=== PATIENT | female | born 1980 ===

== ENCOUNTER 2016-07-28 03:59 | Emergency (ER) | payer MEDICAID, OTHER ==
[~2016-07-28] VITALS: Ht 154.9 cm; Wt 97.3 kg
[~2016-07-28 03:59] MED LIST: ALBU8.5H2 INHALATION; AZIT250T4 PO; BENZ-12 PO; GUAI10LI PO; HYDR-4003 PO; IBUP-1827 PO; NITR100 PO; ONDA-54 PO; ONDA8TAB10 PO; OXYC1TAB24 PO; PRE10 PO; PRE20 PO
[2016-07-28 04:02] VITALS: BP 134/95; PULSE 89; RESP 16; O2SAT 98
--- NOTE | 2016-07-28 05:07 | ED.REPORT ---
HPI-General Illness Date of Service Jul 28, 2016 ED Provider: Dr. aMn Pt is a 36 y/o female w/ a hx of asthma presenting to the ED due to flu-like symptoms onset today. She reports associated fever, fatigue, nasal congestion, myalgia, mild SOB. She denies N/V/D. Nursing Notes Stated Complaint: COUGH/ FLU SYMPTOMS Chief Complaint: FLU/Cold Symptoms Nursing Notes Reviewed: Yes Allergies: Coded Allergies: propoxyphene (Verified Allergy, Severe, Breathing problems and tacycardia , 07/28/16) onion (Verified Allergy, Intermediate, Rash and swelling, 07/28/16) Sulfa (Sulfonamide Antibiotics) (Verified Allergy, Unknown, 07/28/16) Uncoded Allergies: ALL NAUSEA MEDS EXCEPT ZOFRAN (Allergy, Intermediate, ITCH, HIVES, 11/02/12) Scheduled Albuterol HFA (Proair HFA) 8.5 Gm Hfa.aer.ad 2 PUFFS INHALATION Q4H Albuterol HFA (Proair HFA) 8.5 Gm Hfa.aer.ad 2 PUFFS INHALATION Q4H Azithromycin (Zithromax (Z-Anthony)) 250 Mg Tablet 250 MG PO DAILY Nitrofurantoin Monohyd/M-Cryst (MacroBid) 100 Mg Capsule 100 MG PO BID Prednisone (PredniSONE) 20 Mg Tablet 60 MG PO DAILY Prednisone (PredniSONE) 10 Mg Tablet 10 MG PO DAILY on 03/12,18 take 20mg 03/14, 20 take 10mg 03/16, 22 take 5mg you have been given extra to use with your next asthma exacerbation Prednisone (PredniSONE) 20 Mg Tablet 60 MG PO DAILY Scheduled PRN Albuterol HFA (Proair HFA) 8.5 Gm Hfa.aer.ad 2-4 PUFFS INHALATION Q4H PRN PRN For Shortness of Breath Albuterol HFA (Proair HFA) 8.5 Gm Hfa.aer.ad 2 PUFFS INHALATION Q4H PRN PRN For Shortness of Breath Benzonatate (Tessalon Perle) 100 Mg Capsule 200 MG PO TID PRN PRN For Cough Guaifenesin/Codeine Phosphate (Guaifenesin-Codeine Syrup) 10 Ml Liquid 10 ML PO QID PRN PRN For Cough Hydrocodone-Acetaminophen 5-325 mg (Hydrocodone-Acetaminophen 5-325 mg) 1 Each Tablet 1-2 TABLET PO TID PRN PRN For Pain Ibuprofen (Ibuprofen) 600 Mg Tablet 600 MG PO QID PRN PRN For Pain Ondansetron (Ondansetron) 8 Mg Tablet 8 MG PO TID PRN PRN For Nausea Ondansetron ODT (Ondansetron ODT) 8 Mg Tab.rapdis 8 MG PO QID PRN PRN korey oxyCODONE-Acetaminophen 5-325 mg (oxyCODONE-Acetaminophen 5-325 mg) 1 Each Tablet 0.5-1 TAB PO Q6H PRN PRN For Pain General Time Seen by MD: 05:06 Chief Complaint Not feeling well Hx Obtained From: Patient Arrived By: Walk-in Sudden in Onset?: No Onset Occurred: 9 - 12 hours ago Symptom Duration: Since onset Quality: Aching (diffuse) Severity: Current: Mild Severity: Maximum: Mild Past Medical History Past Medical History asthma kidney stones anxiety uterine cancer chronic pain Past Surgical History Hysterectomy 2008 x3 Family History Noncontributory Smoking History Never Smoker Social History Alcohol Use: Denies alcohol use Drug Use: THC Other Social History: Good social support, Frequent ED visitor, , Lives with children, Local resident Ambulatory Status Independent Review of Systems Full Review of Systems Constitutional: Reports: Chills, Fever Respiratory: Reports: Non-productive cough, Shortness of breath GI: Denies: Diarrhea, Nausea, Vomiting Complete sys rev & neg: except as marked. Physical Exam Vital Signs Vital Signs Date Time Temp Pulse Resp B/P Pulse Ox O2 Delivery O2 Flow Rate FiO2 07/28/16 05:57 36.9 84 16 148/82 98 Room Air 07/28/16 05:26 79 18 98 Room Air 07/28/16 04:02 36.4 89 16 134/95 98 Room Air Initial VS: Reviewed, Vital signs normal Head / Eyes: Atraumatic, Normocephalic, PERRL ENT: Mucous membranes moist, Conjunctiva normal, No scleral icterus Neck: Supple, Full range of motion Cardiovascular: Regular rate & rhythm, Heart sounds normal, Intact distal pulses Abdomen / GI: Soft Skin: Warm, Dry, No cyanosis Neurologic: Alert, Oriented, Nonfocal Psychiatric: Mood/affect normal, Behavior normal, Normal thought content General/Constitutional: Awake, Alert, No acute distress, Cooperative, Not toxic appearing Respiratory / Chest: Atraumatic, No respiratory distress, No retractions, No stridor, No chest tenderness, No chest wall deformity, No crepitus Mild wheezing diffusely Re-Eval/Medical Decision Med Decision/Clinical Course 36-year-old with background asthma presents with cough and upper history symptoms. She is negative for flu by test. Home with brief prednisone course, albuterol, and follow up with PCP. No indication for antibiotics. Time of Eval: 05:12 Re-Evaluation/Progress Note: Pt rechecked. Informed pt of plan for treatment. Pt understands and agrees with plan for treatment. F/U and RTER warnings given. All questions addressed. Counseled Regarding: Diagnosis, Lab results, Need for follow-up, When/why to return to ED Discharge & Departure Primary Impression: Asthma exacerbation Additional Impression: Upper respiratory infection URI type: unspecified URI Qualified Code: J06.9 - Acute upper respiratory infection, unspecified Disposition: Home Discharge Condition All VS Reviewed: Yes Condition: Stable Additional Instructions: Ibuprofen as needed for pain. Albuterol two puffs with spacer every four hours as needed for cough and wheeze. Prednisone three tabs daily for five days. Follow-up with your doctor in the office. Referrals: Mackenzie Sheriff (PCP) Scribe Attestation Portions of this note were transcribed by Mundo Givens. I, Dr. Man personally performed the history, physical exam and medical decision-making; I reviewed and confirmed the accuracy of the information in the transcribed note. Signed by Lauren Brannon, 07/28/16 13 copies to: Mackenzie Sheriff Christopher W MD Jul 28, 2016 05:07 MUNDO GIVENS Jul 28, 2016 05:18
[2016-07-28] MEDS ORDERED: Albuterol-Ipratropium 3 mL Inhalation Solution NEB ONE (05:20)
[2016-07-28] MEDS ORDERED: Dexamethasone 20 mg/2 mL Oral Solution PO ONE (05:20)
[2016-07-28 05:26] VITALS: PULSE 79; RESP 18; O2SAT 98
[2016-07-28] MEDS ORDERED: PRE20 PO (05:30)
[2016-07-28] MEDS ORDERED: ALBU8.5H2 INHALATION (05:30)
[2016-07-28 05:57] VITALS: BP 148/82; PULSE 84; RESP 16; O2SAT 98
== END 2016-07-28 05:31 | disposition home or self-care (01) ==
LOC: SED 03:59
DX: J45.901 Unspecified asthma with (acute) exacerbation (principal); J06.9 Acute upper respiratory infection, unspecified; M79.1 Myalgia; R50.9 Fever, unspecified; Z88.2 Allergy status to sulfonamides; Z88.8 Allergy status to other drugs, medicaments and biological substances; Z91.02 Food additives allergy status
CPT/HCPCS: 87804; 94664; 99284; J7620

== ENCOUNTER 2016-08-03 13:31 | Emergency (ER) | payer MEDICAID, OTHER ==
[~2016-08-03] VITALS: Ht 154.9 cm; Wt 96.8 kg
[2016-08-03 14:09] VITALS: BP 152/95; PULSE 96; RESP 22; O2SAT 99
--- NOTE | 2016-08-03 14:40 | ED.REPORT ---
HPI-URI / Cough / Cold Date of Service Aug 03, 2016 ED Provider: Doc,Ed MD History of Present Illness: 36yo female with persistent cough/malaise for severaldays. Seen in this ED on 07/28/16, treated fopr asthma exacerbation. Sanjeev;ateral rib pain from coughing. Good PO intake. ANNE reports shows this is 7th ED visit in 2 months. Nursing Notes Stated Complaint: RIB PAIN/SICK Chief Complaint: FLU/Cold Symptoms Nursing Notes Reviewed: Yes Allergies: Coded Allergies: propoxyphene (Verified Allergy, Severe, Breathing problems and tacycardia , 07/28/16) onion (Verified Allergy, Intermediate, Rash and swelling, 07/28/16) Sulfa (Sulfonamide Antibiotics) (Verified Allergy, Unknown, 07/28/16) Uncoded Allergies: ALL NAUSEA MEDS EXCEPT ZOFRAN (Allergy, Intermediate, ITCH, HIVES, 11/02/12) Scheduled Albuterol HFA (Proair HFA) 8.5 Gm Hfa.aer.ad 2 PUFFS INHALATION Q4H Albuterol HFA (Proair HFA) 8.5 Gm Hfa.aer.ad 2 PUFFS INHALATION Q4H Azithromycin (Zithromax (Z-Anthony)) 250 Mg Tablet 250 MG PO DAILY Nitrofurantoin Monohyd/M-Cryst (MacroBid) 100 Mg Capsule 100 MG PO BID Prednisone (PredniSONE) 20 Mg Tablet 60 MG PO DAILY Prednisone (PredniSONE) 10 Mg Tablet 10 MG PO DAILY on 03/12, take 20mg 03/14, 20 take 10mg 03/16, 22 take 5mg you have been given extra to use with your next asthma exacerbation Prednisone (PredniSONE) 20 Mg Tablet 60 MG PO DAILY Scheduled PRN Albuterol HFA (Proair HFA) 8.5 Gm Hfa.aer.ad 2-4 PUFFS INHALATION Q4H PRN PRN For Shortness of Breath Albuterol HFA (Proair HFA) 8.5 Gm Hfa.aer.ad 2 PUFFS INHALATION Q4H PRN PRN For Shortness of Breath Benzonatate (Tessalon Perle) 100 Mg Capsule 200 MG PO TID PRN PRN For Cough Benzonatate (Tessalon Perle) 100 Mg Capsule 100 MG PO TID PRN PRN For Cough Guaifenesin/Codeine Phosphate (Guaifenesin-Codeine Syrup) 10 Ml Liquid 10 ML PO QID PRN PRN For Cough Hydrocodone-Acetaminophen 5-325 mg (Hydrocodone-Acetaminophen 5-325 mg) 1 Each Tablet 1-2 TABLET PO TID PRN PRN For Pain Ibuprofen (Ibuprofen) 600 Mg Tablet 600 MG PO QID PRN PRN For Pain Ondansetron (Ondansetron) 8 Mg Tablet 8 MG PO TID PRN PRN For Nausea Ondansetron ODT (Ondansetron ODT) 8 Mg Tab.rapdis 8 MG PO QID PRN PRN korey oxyCODONE-Acetaminophen 5-325 mg (oxyCODONE-Acetaminophen 5-325 mg) 1 Each Tablet 0.5-1 TAB PO Q6H PRN PRN For Pain General Time Seen by MD: 14:34 Chief Complaint Cough, non-productive Hx Obtained From: Patient Arrived By: Walk-in Onset Occurred: 1 week ago Symptom Duration: Waxes and wanes Location: : Chest Radiation: Does not radiate Severity: Current: Mild Severity: Maximum: Mild Recent Healthcare: Recent doctor visit, Previous diagnosis Similar Sx Previous: Yes Past Medical History Past Medical History asthma kidney stones anxiety uterine cancer chronic pain Past Surgical History Hysterectomy 2008 x3 Family History Noncontributory Smoking History Never Smoker Social History Alcohol Use: Denies alcohol use Drug Use: THC Other Social History: Good social support, Frequent ED visitor, , Lives with children, Local resident Ambulatory Status Independent Review of Systems Constitutional: Reports: Fever, Denies: Chills Ears / Nose / Throat: Denies: Ear ringing bilateral Respiratory: Reports: Non-productive cough, Pleuritic pain, Wheezing GI: Denies: Abdominal pain Complete sys rev & neg: except as marked. Physical Exam Initial Vital Signs Vital Signs (First) Date Time Temp Pulse Resp B/P Pulse Ox O2 Delivery O2 Flow Rate FiO2 08/03/16 14:09 36.4 96 22 152/95 99 Room Air Initial VS: Reviewed General/Constitutional: Awake, Alert, No acute distress, Well hydrated, Not toxic appearing ENT: Airway patent, Mucous membranes moist, Pharynx NL Respiratory / Chest: Atraumatic, Breath sounds NL, Breath sounds = bilat, No respiratory distress Neck: Supple, Full range of motion, No adenopathy Cardiovascular: Heart rate NL, Regular rhythm, Heart sounds NL Abdomen: Soft, Non-tender Interpretation & Diagnostics Interpretation & Diagnostics: Rapid Flu test = negative X-Ray Chest Interpretation Chest Xray Interpretation: PROCEDURE: X-RAY CHEST, TWO VIEWS ([id number]) INDICATIONS: cough TECHNIQUE: 2 views of the chest were acquired. COMPARISON: None. FINDINGS: Surgical changes and devices: None. Lungs and pleura: No pleural effusions or pneumothorax. The old calcified granuloma at the right lung base. Lungs are clear. Mediastinum: Mediastinal contours are normal. Heart size is normal. Bones and chest wall: No suspicious bony abnormalities. Soft tissues appear unremarkable. IMPRESSION: No acute or active disease seen in the two-view chest. Dictated by: Timothy Casillas M.D. on 08/03/2016 at 15:22 Approved by: Timothy Casillas M.D. on 08/03/2016 at 15:22 Re-Eval/Medical Decision Med Decision/Clinical Course Med Decision/Clinical Course: straightforward bronchitis, no worrisome features. Pt. shopuld do well with home symptomatic treatment. S/s for which to return to ED discussed. Pt. acknowledged understanding of treatment plan. Counseled Regarding: Diagnosis, Lab results, Need for follow-up, When/why to return to ED Discharge & Departure Impression: Primary Impression: Bronchitis Additional Impression: Asthma Asthma severity: unspecified severity Asthma complication type: uncomplicated Qualified Code: J45.909 - Unspecified asthma, uncomplicated Disposition: Home Patient Instructions: Acute Bronchitis (ED) Additional Instructions: continue asthma meds as previously prescribed. Take Cough tablets as prescribed today. Follow up with your doctor if not improving, return to ER if worse. Referrals: Mackenzie Sheriff (PCP) 2-3 days if not improving as expected EDSupervising Provider for APC: Grant Acevedo MD, Christopher R PAC Aug 03, 2016 14:40
--- NOTE | 2016-08-03 15:24 | DRSVH ---
PROCEDURE: X-RAY CHEST, TWO VIEWS ([id number]) INDICATIONS: cough TECHNIQUE: 2 views of the chest were acquired. COMPARISON: None. FINDINGS: Surgical changes and devices: None. Lungs and pleura: No pleural effusions or pneumothorax. The old calcified granuloma at the right walter g base. Lungs are clear. Mediastinum: Mediastinal contours are normal. Heart size is normal. Bones and chest wall: No suspicious bony abnormalities. Soft tissues appear unremarkable. IMPRESSION: No acute or active disease seen in the two-view chest. Dictated by: Timothy Casillas M.D. on 08/03/2016 at 15:22 Approved by: Timothy Casillas M.D. on 08/03/2016 at 15:22
[2016-08-03] MEDS ORDERED: BENZ-12 PO (16:27)
[2016-08-03 16:29] VITALS: BP 152/95; PULSE 96; RESP 22; O2SAT 99
== END 2016-08-03 16:30 | disposition home or self-care (01) ==
LOC: SED 13:31
DX: J45.909 Unspecified asthma, uncomplicated (principal); C55 Malignant neoplasm of uterus, part unspecified

== ENCOUNTER 2016-08-10 23:25 | Emergency (ER) | payer MEDICAID, OTHER ==
[~2016-08-10] VITALS: Ht 154.9 cm; Wt 96.4 kg
[2016-08-10 23:34] VITALS: BP 112/76; PULSE 119; RESP 20; O2SAT 97
--- NOTE | 2016-08-10 23:44 | ED.REPORT ---
HPI-General Illness Date of Service Aug 10, 2016 ED Provider: Lencho Phelan DO A 36 year old female with a history of asthma, COPD, anxiety, and multiple recent ED visits presents to the ED complaining of abdominal pain. This is accompanied by cough, vomiting, and diarrhea. The pt was seen several days ago for similar symptoms and was diagnosed with influenza A. Nursing Notes Stated Complaint: POSSIBLE FLU Chief Complaint: FLU/Cold Symptoms Nursing Notes Reviewed: Yes Allergies: Coded Allergies: propoxyphene (Verified Allergy, Severe, Breathing problems and tacycardia , 08/10/16) onion (Verified Allergy, Intermediate, Rash and swelling, 08/10/16) Sulfa (Sulfonamide Antibiotics) (Verified Allergy, Unknown, 08/10/16) Uncoded Allergies: ALL NAUSEA MEDS EXCEPT ZOFRAN (Allergy, Intermediate, ITCH, HIVES, 11/02/12) Scheduled Albuterol HFA (Proair HFA) 8.5 Gm Hfa.aer.ad 2 PUFFS INHALATION Q4H Albuterol HFA (Proair HFA) 8.5 Gm Hfa.aer.ad 2 PUFFS INHALATION Q4H Azithromycin (Zithromax (Z-Anthony)) 250 Mg Tablet 250 MG PO DAILY Nitrofurantoin Monohyd/M-Cryst (MacroBid) 100 Mg Capsule 100 MG PO BID Prednisone (PredniSONE) 20 Mg Tablet 60 MG PO DAILY Prednisone (PredniSONE) 10 Mg Tablet 10 MG PO DAILY on 03/12, take 20mg 03/14, 20 take 10mg 03/16, 22 take 5mg you have been given extra to use with your next asthma exacerbation Prednisone (PredniSONE) 20 Mg Tablet 60 MG PO DAILY Scheduled PRN Albuterol HFA (Proair HFA) 8.5 Gm Hfa.aer.ad 2-4 PUFFS INHALATION Q4H PRN PRN For Shortness of Breath Albuterol HFA (Proair HFA) 8.5 Gm Hfa.aer.ad 2 PUFFS INHALATION Q4H PRN PRN For Shortness of Breath Benzonatate (Tessalon Perle) 100 Mg Capsule 200 MG PO TID PRN PRN For Cough Benzonatate (Tessalon Perle) 100 Mg Capsule 100 MG PO TID PRN PRN For Cough Guaifenesin/Codeine Phosphate (Guaifenesin-Codeine Syrup) 10 Ml Liquid 10 ML PO QID PRN PRN For Cough Hydrocodone-Acetaminophen 5-325 mg (Hydrocodone-Acetaminophen 5-325 mg) 1 Each Tablet 1-2 TABLET PO TID PRN PRN For Pain Ibuprofen (Ibuprofen) 600 Mg Tablet 600 MG PO QID PRN PRN For Pain Ondansetron (Ondansetron) 8 Mg Tablet 8 MG PO TID PRN PRN For Nausea Ondansetron ODT (Ondansetron ODT) 8 Mg Tab.rapdis 8 MG PO QID PRN PRN korey Ondansetron ODT (Ondansetron ODT) 8 Mg Tab.rapdis 8 MG PO QID PRN PRN For Nausea oxyCODONE-Acetaminophen 5-325 mg (oxyCODONE-Acetaminophen 5-325 mg) 1 Each Tablet 0.5-1 TAB PO Q6H PRN PRN For Pain General Time Seen by MD: 23:44 Chief Complaint Abdominal pain Hx Obtained From: Patient Arrived By: Walk-in Sudden in Onset?: No Recent Healthcare: Recent doctor visit, Recent hospitalization Similar Sx Previous: Yes Past Medical History Past Medical History asthma kidney stones anxiety uterine cancer chronic pain Past Surgical History Hysterectomy 2008 x3 Family History Noncontributory Smoking History Never Smoker Social History Alcohol Use: Denies alcohol use Drug Use: THC Other Social History: Good social support, Frequent ED visitor, , Lives with children, Local resident Ambulatory Status Independent Review of Systems Full Review of Systems Respiratory: Reports: Non-productive cough GI: Reports: Abdominal pain, Diarrhea, Nausea, Vomiting Musculoskeletal: Denies: Back pain, Neck pain Skin: Denies Rash Complete sys rev & neg: except as marked. Physical Exam Vital Signs Vital Signs Date Time Temp Pulse Resp B/P Pulse Ox O2 Delivery O2 Flow Rate FiO2 08/11/16 04:28 37.2 89 20 138/86 98 Room Air 08/11/16 03:11 101 20 147/89 99 Room Air 08/10/16 23:34 36.3 119 20 112/76 97 Room Air Initial VS: Reviewed General/Constitutional: Awake, Alert Head / Eyes: Atraumatic, Normocephalic, PERRL, EOMI ENT: Atraumatic, Airway patent, Mucous membranes moist Neck: Atraumatic, Supple, Full range of motion Respiratory / Chest: Atraumatic, Breath sounds = bilat, No respiratory distress wheeze in bilateral bases Cardiovascular: Heart rate NL, Regular rhythm, Heart sounds NL Abdomen: Atraumatic, Soft, Non-tender Back: Atraumatic, Full range of motion Upper Extremities Upper Extremity / MS: Atraumatic, Full range of motion Lower Extremity / Pelvis / MS: Atraumatic, Full range of motion Skin: Atraumatic, Color NL, No rash, Warm, Dry Neurologic: Oriented X3, Speech NL, No motor deficits, No sensory deficits Psychiatric: Affect NL, Mood NL Interpretation & Diagnostics Lab Results Interpretation Result Diagram: 08/11/16 0027 08/11/16 0027 Test 08/11/16 00:27 White Blood Count 11.2th/mm3 (3.8-10.1) Red Blood Count 4.44mil/mm3 (3.90-5.20) Hemoglobin 12.4g/dL (12.0-15.6) Hematocrit 38.0% (35.0-46.0) Mean Corpuscular Volume 85.6fL (81-100) Mean Corpuscular Hemoglobin 27.9pg (27.0-35.0) Mean Corpuscular Hemoglobin Concent 32.6% (32.0-37.0) Red Cell Distribution Width 15.3% (12.3-15.4) Platelet Count 418bil/L (150-400) Neutrophils (%) (Auto) 54.4% (40-74) Lymphocytes (%) (Auto) 29.3% (14-46) Monocytes (%) (Auto) 9.5% (4-12) Eosinophils (%) (Auto) 6.3% (0-5) Basophils (%) (Auto) 0.3% (0-3) Sodium Level 142mEq/L (134-144) Potassium Level 4.2mEq/L (3.5-5.2) Chloride Level 104mEq/L (97-108) Carbon Dioxide Level 25mmol/L (18-29) Blood Urea Nitrogen 10mg/dL (6-20) Creatinine 0.62mg/dL (0.57-1.00) Estimat Glomerular Filtration Rate 154mL/min (>59) Glucose Level 106mg/dL (60-99) Lactic Acid Level 0.9mmol/L (0.4-2.0) Calcium Level 8.4mg/dL (8.5-10.1) Total Bilirubin 0.3mg/dL (0.0-1.2) Aspartate Amino Transf (AST/SGOT) 17U/L (0-50) Alanine Aminotransferase (ALT/SGPT) 14U/L (0-32) Alkaline Phosphatase 104U/L (25-150) Total Protein 7.1g/dL (6.4-8.4) Albumin 3.8g/dL (3.4-5.0) Lipase 40U/L (13-60) Pulse Oximetry Interpretation Pulse Oximetry Interpretation: 97% on room air Pulse Oximetry: Pulse Ox normal X-Ray Chest Interpretation Chest Xray Interpretation: no acute findings Interpretation / Wet Read by: Wet read ED physician Re-Eval/Medical Decision Source of Hx: Old records Time of Eval: 02:00 Re-Evaluation/Progress Note: Pt rechecked, who is complaining of increased RLQ abdominal pain. The need for CT scan is discussed. The pt agrees with the plan. Counseled Regarding: Diagnosis, Lab results, Need for follow-up, When/why to return to ED Discharge & Departure Shift Change Sign-Out Patient Care Transferred: Yes Discussed Complaint(s): Yes Laboratory Evaluation: Ordered, not yet done Imaging Studies: Ordered, not yet done Response to Therapy: Improved Initially tachycardic improved after IV fluids. CT scan reported back negative. Home with Percocet and Zofran as per Dr. Phelan Primary Impression: Abdominal pain Abdominal location: lower abdomen Qualified Code: R10.30 - Lower abdominal pain, unspecified Additional Impression: Influenza due to influenza A virus Disposition: Home Discharge Condition All VS Reviewed: Yes Condition: Stable Referrals: Mackenzie Sheriff (PCP) Care Transferred to: Dr. Man Care Transferred at: 03:00 Lauren Attestation Portions of this note were transcribed by Acosta Caraballo I, Dr. Phelan personally performed the history, physical exam and medical decision-making; I reviewed and confirmed the accuracy of the information in the transcribed note. Signed by: Lauren Gordon, 08/11/16 and 02:14. copies to: Mackenzie Sheriff Todd P DO Aug 10, 2016 23:44 ACOSTA CARABALLO 15, 2017 23:55 Yg Man MD Aug 11, 2016 06:51
[2016-08-10] MEDS ORDERED: 0.9% Sodium Chloride 1,000 ML IV ONE (23:56)
[2016-08-11] MEDS: Ondansetron 2 mg/mL 2 mL Inj IVPUSH PRN ×2 (00:30→03:10)
[2016-08-11] MEDS: HYDROmorphone 0.5 mg/0.5 mL iSecure Syringe IVPUSH PRN ×3 (00:30→03:10)
[2016-08-11 00:41] LABS: BASOPHILS % (AUTO) 0.3 % (0-3); EOSINOPHILS % (AUTO) 6.3 % (0-5); MONOCYTES % (AUTO) 9.5 % (4-12); Mean Corpuscular Hemoglobin 27.9 pg (27.0-35.0); Mean Corpuscular Volume 85.6 fL (81-100); NEUTROPHILS % (AUTO) 54.4 % (40-74); Platelet Count 418 bil/L (150-400)
[2016-08-11] MEDS ORDERED: _Ondansetron ODT 4 mg Tablet PO PRN (02:20)
[2016-08-11] MEDS ORDERED: _oxyCODONE/APAP 5-325 mg Tablet PO PRN (02:20)
[2016-08-11] MEDS ORDERED: ONDA8TAB10 PO (03:05)
[2016-08-11 03:11] VITALS: BP 147/89; PULSE 101; RESP 20; O2SAT 99
[2016-08-11 04:28] VITALS: BP 138/86; PULSE 89; RESP 20; O2SAT 98
--- NOTE | 2016-08-11 09:11 | DRSVH ---
PROCEDURE: X-RAY CHEST, TWO VIEWS ([id number]) INDICATIONS: cough TECHNIQUE: 2 views of the chest were acquired. COMPARISON: [facility], CR, XR CHEST 2VW, 07/09/2016, 0:51. [facility], CR, XR CHEST 2VW, 08/03/2016, 14:49. FINDINGS: Surgical changes and devices: None. Lungs and pleura: No pleural effusions or pneumothorax. Lungs are clear, aside from subcentimeter r ight basilar calcified granuloma. Mediastinum: Mediastinal contours are normal. Heart size is normal. Bones and chest wall: No suspicious bony abnormalities. Soft tissues appear unremarkable. IMPRESSION: No acute cardiopulmonary disease. Dictated by: Bernabe ZAVALA Interpreted: Leslie Alarcon MD on 08/11/2016 at 9:11 Transcribed by: DAT on 08/11/2016 at 9:11 Approved by: Leslie Alarcon M.D. on 08/11/2016 at 13:37
--- NOTE | 2016-08-11 09:49 | DRSVH ---
PROCEDURE: CT ABDOMEN AND PELVIS WITH CONTRAST ([id number]) INDICATIONS: rlq pain, leukocytosis, vomiting TECHNIQUE: After the administration of intravenous contrast, 5 mm thick sections acquired from the diaphragm to the symphysis. 5 mm coronal and sagittal reformats were acquired. For radiation dose reduction, the following was used: automated exposure control, adjustment of mA and/or kV according to patient siz e. COMPARISON: [facility], CT, CT ABD PELVIS W CON, 06/17/2015, 23:35. [facility], CT , KIDNEY/ URETER/BLADDER, 10/07/2010, 20:33. [facility], CT, KUB - CT ([facility]), 02/08/2011, 1 6:57. [facility], CT, ABD/PELVIS W/CON ([facility]), 01/05/2013, 3:17. FINDINGS: Image quality: Excellent. ABDOMEN: Lung bases: Lung bases are clear. Heart size is normal. Solid organs: Liver and spleen are normal in size and enhancement. Gallbladder is within normal beltran its. Biliary system is non dilated. Pancreas enhances normally. No adrenal nodules. Kidneys demon strate normal size and enhancement, without hydronephrosis. Peritoneum and bowel: Bowel loops demonstrate normal wall thickness and caliber. No free fluid or a ir. The appendix is normal. Nodes and vessels: No retroperitoneal or mesenteric adenopathy by size criteria. Aorta and inferior vena cava are normal in size. Miscellaneous: A small fat containing umbilical hernia is noted. PELVIS: Genitourinary: Bladder wall thickness is normal. 1.5 cm right adnexal cyst is noted. Uterus is atrop hied or surgically absent. Miscellaneous: No inguinal hernias or adenopathy. Bones: No suspicious bony lesions. No vertebral body compression fractures. IMPRESSION: 1. No acute disease process identified. 2. The appendix is normal. 3. No free fluid or air. 4. No dilated loops of bowel. 5. No inflammatory changes. Dictated by: Sophie Rivera MD, PhD on 08/11/2016 at 9:48 Approved by: Sophie Rivera MD, PhD on 08/11/2016 at 9:48
== END 2016-08-11 04:29 | disposition home or self-care (01) ==
LOC: SED 23:25
DX: R10.31 Right lower quadrant pain (principal); J10.1 Influenza due to other identified influenza virus with other respiratory manifestations; R11.10 Vomiting, unspecified; R19.7 Diarrhea, unspecified; J45.909 Unspecified asthma, uncomplicated; Z88.2 Allergy status to sulfonamides; Z88.8 Allergy status to other drugs, medicaments and biological substances; Z91.02 Food additives allergy status
CPT/HCPCS: 36415; 71020; 74177; 80053; 83605; 83690; 85025; 96361; 96374; 96375; 96376; 99285; J1170; J2405; J7030; Q9967

== ENCOUNTER 2016-08-20 21:24 | Emergency (ER) | payer MEDICAID, OTHER ==
[~2016-08-20] VITALS: Ht 154.9 cm; Wt 100.0 kg
[2016-08-20 21:35] VITALS: BP 141/93; PULSE 100; RESP 20; O2SAT 98
--- NOTE | 2016-08-20 23:30 | ED.REPORT ---
HPI-General Illness Date of Service Aug 20, 2016 ED Provider: Grant Acevedo MD Pt is a 36 year old female with a hx of asthma, anxiety and uterine cancer presenting to the ED complaining of chest pain due to a cough onset 2 weeks ago. Associated symptoms include fever. This is the pt's 4th ED visit this month , and she is a frequent ED visitor. The pt has been using an Albuterol inhaler and Tessalon pearls. . Nursing Notes Stated Complaint: COUGH, SIDE PAIN Chief Complaint: FLU/Cold Symptoms Nursing Notes Reviewed: Yes Allergies: Coded Allergies: propoxyphene (Verified Allergy, Severe, Breathing problems and tacycardia , 08/10/16) onion (Verified Allergy, Intermediate, Rash and swelling, 08/10/16) Sulfa (Sulfonamide Antibiotics) (Verified Allergy, Unknown, 08/10/16) Uncoded Allergies: ALL NAUSEA MEDS EXCEPT ZOFRAN (Allergy, Intermediate, ITCH, HIVES, 11/02/12) Scheduled Albuterol HFA (Proair HFA) 8.5 Gm Hfa.aer.ad 2 PUFFS INHALATION Q4H Albuterol HFA (Proair HFA) 8.5 Gm Hfa.aer.ad 2 PUFFS INHALATION Q4H Azithromycin (Zithromax (Z-Anthony)) 250 Mg Tablet 250 MG PO DAILY Nitrofurantoin Monohyd/M-Cryst (MacroBid) 100 Mg Capsule 100 MG PO BID Prednisone (PredniSONE) 20 Mg Tablet 60 MG PO DAILY Prednisone (PredniSONE) 10 Mg Tablet 10 MG PO DAILY on 03/12, take 20mg 03/14, 20 take 10mg 03/16, 22 take 5mg you have been given extra to use with your next asthma exacerbation Prednisone (PredniSONE) 20 Mg Tablet 60 MG PO DAILY Scheduled PRN Albuterol HFA (Proair HFA) 8.5 Gm Hfa.aer.ad 2-4 PUFFS INHALATION Q4H PRN PRN For Shortness of Breath Albuterol HFA (Proair HFA) 8.5 Gm Hfa.aer.ad 2 PUFFS INHALATION Q4H PRN PRN For Shortness of Breath Benzonatate (Tessalon Perle) 100 Mg Capsule 200 MG PO TID PRN PRN For Cough Benzonatate (Tessalon Perle) 100 Mg Capsule 100 MG PO TID PRN PRN For Cough Guaifenesin/Codeine Phosphate (Guaifenesin-Codeine Syrup) 10 Ml Liquid 10 ML PO QID PRN PRN For Cough Hydrocodone-Acetaminophen 5-325 mg (Hydrocodone-Acetaminophen 5-325 mg) 1 Each Tablet 1-2 TABLET PO TID PRN PRN For Pain Ibuprofen (Ibuprofen) 600 Mg Tablet 600 MG PO QID PRN PRN For Pain Ondansetron (Ondansetron) 8 Mg Tablet 8 MG PO TID PRN PRN For Nausea Ondansetron ODT (Ondansetron ODT) 8 Mg Tab.rapdis 8 MG PO QID PRN PRN korey Ondansetron ODT (Ondansetron ODT) 8 Mg Tab.rapdis 8 MG PO QID PRN PRN For Nausea oxyCODONE-Acetaminophen 5-325 mg (oxyCODONE-Acetaminophen 5-325 mg) 1 Each Tablet 0.5-1 TAB PO Q6H PRN PRN For Pain General Time Seen by MD: 23:27 Chief Complaint Cough Hx Obtained From: Patient Arrived By: Walk-in Sudden in Onset?: No Onset Occurred: More than a week ago... (2 weeks) Symptom Duration: Since onset Location: : Abdomen: Chest Severity: Current: Mild Severity: Maximum: Mild Recent Healthcare: No recent hospitalization, Recent doctor visit Similar Sx Previous: Yes Past Medical History Past Medical History asthma kidney stones anxiety uterine cancer chronic pain Past Surgical History Hysterectomy 2008 x3 Family History Noncontributory Smoking History Never Smoker Social History Alcohol Use: Denies alcohol use Drug Use: THC Other Social History: Good social support, Frequent ED visitor, , Lives with children, Local resident Ambulatory Status Independent Review of Systems Full Review of Systems Constitutional: Denies: Fever Respiratory: Reports: Non-productive cough Cardiovascular: Reports: Chest pain GI: Denies: Vomiting Complete sys rev & neg: except as marked. Physical Exam Mild cough Vital Signs Vital Signs Date Time Temp Pulse Resp B/P Pulse Ox O2 Delivery O2 Flow Rate FiO2 08/20/16 23:45 36.9 78 17 139/67 99 Room Air 08/20/16 21:35 37.2 100 20 141/93 98 Room Air Initial VS: Reviewed General/Constitutional: Well-developed, Well-nourished Head / Eyes: Atraumatic, Normocephalic, PERRL Cardiovascular: Regular rate & rhythm, Heart sounds normal, Intact distal pulses Abdomen / GI: Soft, Non-tender, No guarding, No rebound, No distention Extremities: Vascular intact, Neuro intact, No swelling, No tenderness Skin: Warm, Dry, No cyanosis Neurologic: Alert, Oriented, Nonfocal Psychiatric: Mood/affect normal, Behavior normal, Normal thought content ENT: Airway patent, Mucous membranes moist, Pharynx NL (Except for a bit of a post nasal drip) Respiratory / Chest: Breath sounds = bilat, No respiratory distress Scattered wheezes Interpretation & Diagnostics X-Ray Chest Interpretation Chest Xray Interpretation: Negative. Interpretation / Wet Read by: Interpret - ED physician Re-Eval/Medical Decision Time of Eval: 23:27 Patient Status: Condition improved Re-Evaluation/Progress Note: Discussed plan for discharge. Pt understands and agrees with plan. All pt questions addressed. Counseled Regarding: Diagnosis, Lab results, Need for follow-up, When/why to return to ED Discharge & Departure Primary Impression: Cough Disposition: Home Discharge Condition All VS Reviewed: Yes Condition: Improved Additional Instructions: ED evaluation included review, examination, review of past records and chest x- ray. Examination and chest x-ray are reassuring, there is no pneumonia. It is very common after influenza and have a cough for several weeks. Continue with albuterol inhaler as needed for wheezing. acetaminophen or ibuprofen as needed for pain. Nasal saline solution may help with nasal congestion. May use honey and lemon dissolved in warm water to suppress cough. Follow-up with your primary care provider if not improving in a week. Referrals: Mackenzie Sheriff (PCP) Scribe Attestation Portions of this note were transcribed by Iram Angulo. I, Dr. Acevedo personally performed the history, physical exam and medical decision-making; I reviewed and confirmed the accuracy of the information in the transcribed note. Signed by : Lauren Shi, 08/20/2016 and [id number]. copies to: Mackenzie Sheriff Donald L MD Aug 20, 2016 23:29 IRAM ANGULO Aug 20, 2016 23:34
[2016-08-20 23:45] VITALS: BP 139/67; PULSE 78; RESP 17; O2SAT 99
--- NOTE | 2016-08-21 09:06 | DRSVH ---
PROCEDURE: X-RAY CHEST, TWO VIEWS ([id number]) INDICATIONS: cough, fever TECHNIQUE: 2 views of the chest were acquired. COMPARISON: None. FINDINGS: Surgical changes and devices: None. Lungs and pleura: No pleural effusions or pneumothorax. Lungs are clear, aside from subcentimeter r ight basilar calcified granuloma. Mediastinum: Mediastinal contours are normal. Heart size is normal. Bones and chest wall: No suspicious bony abnormalities. Soft tissues appear unremarkable. IMPRESSION: No acute cardiopulmonary disease. Dictated by: Bernabe Awan [facility] Interpreted: Sophie Rivera MD on 08/21/2016 at 9:04 Transcribed by: NYDIA on 08/21/2016 at 9:05 Approved by: Sophie Rievra MD, PhD on 08/21/2016 at 17:23
== END 2016-08-20 23:46 | disposition home or self-care (01) ==
LOC: SED 21:24
DX: R05 Cough (principal); R07.9 Chest pain, unspecified; R50.9 Fever, unspecified; J45.909 Unspecified asthma, uncomplicated; F41.9 Anxiety disorder, unspecified; Z85.42 Personal history of malignant neoplasm of other parts of uterus; Z87.442 Personal history of urinary calculi; Z88.5 Allergy status to narcotic agent; Z88.2 Allergy status to sulfonamides; Z88.8 Allergy status to other drugs, medicaments and biological substances

== ENCOUNTER 2017-03-03 20:28 | Inpatient (IN) | payer MEDICAID, OTHER ==
[~2017-03-03] VITALS: Ht 154.9 cm; Wt 94.2 kg
[2017-03-03 20:44] VITALS: BP 128/90; PULSE 111; RESP 22; O2SAT 100
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
[2017-03-03] MEDS ORDERED: 0.9% Sodium Chloride 1,000 ML IV ONE (23:22)
[2017-03-03] MEDS ORDERED: Alum-Mag Hydrox-Simeth 30 mL Suspension PO PRN (23:25)
[2017-03-03] MEDS ORDERED: Ondansetron 2 mg/mL 2 mL Inj IVPUSH PRN (23:25)
[2017-03-03] MEDS: HYDROmorphone 0.5 mg/0.5 mL iSecure Syringe IVPUSH PRN ×2 (23:37→23:58)
[2017-03-03 23:42] LABS: BASOPHILS % (AUTO) 0.2 % (0-3); EOSINOPHILS % (AUTO) 0.2 % (0-5); MONOCYTES % (AUTO) 3.3 % (4-12); Mean Corpuscular Hemoglobin 28.5 pg (27.0-35.0); Mean Corpuscular Volume 85.3 fL (81-100); NEUTROPHILS % (AUTO) 87.7 % (40-74); Platelet Count 419 bil/L (150-400)
[2017-03-03] MEDS ORDERED: Polyethylene Glycol (PEG) 17 Gm Powder PO PRN (23:50)
[2017-03-03] MEDS ORDERED: HYDROcodone-APAP 5-325 mg Tablet PO PRN (23:50)
[2017-03-03 23:58] VITALS: BP 127/82; PULSE 101; RESP 20; O2SAT 98
[2017-03-04] VITALS (17 sets, daily range): BP systolic 117–161; BP diastolic 71–99; PULSE 73–100; RESP 10–21; O2SAT 96–100
[2017-03-04 00:21] LABS: INR 0.95 ratio
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
[2017-03-04 00:46] LABS: BASOPHILS % (AUTO) 0.2 % (0-3); EOSINOPHILS % (AUTO) 0.1 % (0-5); MONOCYTES % (AUTO) 4.3 % (4-12); Mean Corpuscular Hemoglobin 28.4 pg (27.0-35.0); Mean Corpuscular Volume 85.3 fL (81-100); NEUTROPHILS % (AUTO) 85.6 % (40-74); Platelet Count 428 bil/L (150-400)
[2017-03-04] MEDS: Acetaminophen IV 1,000 MG in IV Premix 1 EACH IV PRN ×2 (01:15→17:42)
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
[2017-03-04] MEDS ORDERED: Albuterol 2.5 mg/3 mL Inhalation Solution NEB PRN ×2 (01:30→11:00)
[2017-03-04] MEDS: Heparin 5,000 Unit/mL Inj SUBQ SCH ×3 (01:33→16:00)
[2017-03-04] MEDS: HYDROmorphone 1 mg/mL Inj IVPUSH PRN ×10 (02:29→23:13)
--- NOTE | 2017-03-04 02:31 | NUR ---
Pt off unit for CT
--- NOTE | 2017-03-04 02:45 | NUR ---
Pt return to unit CT complete
[2017-03-04] MEDS ORDERED: HYDROcodone-APAP 5-325 mg Tablet PO PRN (03:50)
[2017-03-04 04:21] LABS: APPEARANCE,URINE CLOUDY (CLEAR,HAZY); COLOR,URINE YELLOW (YELLOW); OCCULT BLOOD,URINE NEGATIVE (NEGATIVE)
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
--- NOTE | 2017-03-04 08:25 | DRSVH ---
PROCEDURE: X-RAY LEFT HIP COMPLETE, MINIMUM TWO VIEWS ([id number]) INDICATIONS: hip pain TECHNIQUE: 2 views of the hip were acquired. COMPARISON: None. FINDINGS: Bones: No fractures or dislocations. No suspicious bony lesions. The visualized pelvic ring appear s intact. Soft tissues: No suspicious soft tissue calcifications or masses. IMPRESSION: No acute fractures or dislocations. If there is clinical concern for radiographically occ ult fracture then a noncontrast CT or MRI of the left hip would be recommended for further evaluation . Dictated by: Antonio Mckeon M.D. on 03/04/2017 at 8:22 Approved by: Antonio Mckeon M.D. on 03/04/2017 at 8:23
[2017-03-04] MEDS: Dextrose 5% 0.45% NaCl 1,000 ML IV SCH ×2 (08:27→17:48)
--- NOTE | 2017-03-04 08:33 | DRSVH ---
PROCEDURE: X-RAY LEFT KNEE, ONE OR TWO VIEWS ([id number]) INDICATIONS: knee pain TECHNIQUE: 3 views of the knee were acquired. COMPARISON: None. FINDINGS: Bones: Vertical lateral tibial plateau fracture extending to the tibial spines with mild depression o f the lateral tibial plateau. Minimal bicompartmental degenerative change. Soft tissues: Moderate left hemarthrosis. No suspicious soft tissue calcifications. IMPRESSION: Vertical lateral tibial plateau fracture extending to the tibial spines with mild depress ion of the lateral tibial plateau. Left hemarthrosis. Dictated by: Antonio Mckeon M.D. on 03/04/2017 at 8:30 Approved by: Antonio Mckeon M.D. on 03/04/2017 at 8:31
[2017-03-04] MEDS ORDERED: CeFAZolin 2 Gm/50 mL D5W Duplex Bag IV ONE ×2 (10:35→18:45)
[2017-03-04] MEDS ORDERED: CeFAZolin Inj 2 GM in IV Premix 1 EACH IV ONE (10:50)
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
[2017-03-04] MEDS ORDERED: HYDROmorphone 1 mg/mL Inj ONE (12:16)
[2017-03-04] MEDS ORDERED: Dexamethasone 4 mg/mL Inj ONE (12:16)
[2017-03-04] MEDS ORDERED: Ondansetron 2 mg/mL 2 mL Inj ONE (12:16)
[2017-03-04] MEDS ORDERED: fentaNYL-PF 50 mCg/mL 2 mL Inj ONE ×2 (12:16→22:03)
[2017-03-04] MEDS ORDERED: Propofol 10,000 mCg/mL 20 mL Inj ONE (12:16)
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
--- NOTE | 2017-03-04 17:55 | NUR ---
PAIN/ACTIVITY Patient rates her pain as 8-10/10 on her LLE. Dilaudid 2 mg has been helpful for pain pain control. Patient rated her pain as 4-6/10 after her pain medication. NPO a this time for anticipated surgery tonight. Denies SOB. BR. Patient is able to reposition independently in bed. Orthos WNL.
--- NOTE | 2017-03-04 18:13 | PCM.HPANE ---
Patient Data Date of Service: Mar 04, 2017 Surgeon Admitting Provider:Neli Ann DO Attending Provider:Nathalie Fischer MD Primary Care Physician:Mackenzie Sheriff Other Provider:Jared Garcia Anesthesia Reason for Visit L Tibial Plateau Fracture Ht/WT & BMI Height (Feet): 5 Height (Inches): 1.00 Weight (Kilograms): 94.200 Body Mass Index 39.21 Allergies Coded Allergies: propoxyphene (Verified Allergy, Severe, Breathing problems and tacycardia , 08/10/16) onion (Verified Allergy, Intermediate, Rash and swelling, 08/10/16) Sulfa (Sulfonamide Antibiotics) (Verified Allergy, Unknown, 08/10/16) Uncoded Allergies: ALL NAUSEA MEDS EXCEPT ZOFRAN (Allergy, Intermediate, ITCH, HIVES, 11/02/12) Past Anesthesia History Anesthesia History: Denies:: Anesthesia Reactions Diabetes History Hx Diabetes?: Yes (used to) Type of Diabetes: Diet Controlled Glycemic Control: Diet Controlled MRSA MRSA: Yes (5 yr prior) Medications Hypertension Medication: No Home Meds Incl Beta Haim: No Active Scripts Ibuprofen 600 Mg [id number] Mg PO QID PRN For Pain #40 TABLET Prov:Yg Man MD 07/09/16 Reported Medications Albuterol HFA (Proair HFA)8.5 Gm Hfa.aer.ad2 Puffs INHALATION Q4H #1 INHALER 06/17/15 Discontinued Scripts Albuterol HFA (Proair HFA)8.5 Gm Hfa.aer.ad2 Puffs INHALATION Q4H #1 INHALER Prov:Yg Man MD 07/28/16 Benzonatate (Tessalon Perle)100 Mg [id number] Mg PO TID PRN For Cough #30 CAPSULE Ref 1 Prov:Ky Alexandre MD 03/02/16 Prednisone (PredniSONE)20 Mg [id number] Mg PO DAILY #15 TABLET Ref 0 Prov:Ky Alexandre MD 03/02/16 Albuterol HFA (Proair HFA)8.5 Gm Hfa.aer.ad2-4 Puffs INHALATION Q4H PRN For Shortness of Breath #1 INHALER Prov:Shimon Victor DO 01/24/16 History History of ENT Problems?: No HEENT History: Denies:: Cataracts Dysphagia Glaucoma Sinus Problem Denture Type: None Teeth Condition: Within Normal Limits Hx of Heart Problems?: No Cardiovascular History: Denies:: Congestive Heart Failure Hypertension Hx of Respiratory Problem?: Yes Respiratory History: Positive for:: Asthma (mild, intermittent) Pneumonia Denies:: COPD Dyspnea Hemoptysis Tuberculosis Hx Neurologic Problems?: No Neurological History: Positive for:: Headaches Denies:: CVA Hx of GI Problems?: No Gastrointestinal History: Denies:: Gastroesphageal Reflux Hx of Problems?: Yes Genitourinary History: Positive for:: Kidney Stones Female Hx: Denies:: Currently (hysterectomy) Endometriosis Pelvic Inflammatory Problems with Breasts? Hx Musculoskeletal Problems?: No Musculoskeletal History: Positive for:: Back Injury Musculoskeletal Trauma Hx of Psycho/Social Problems?: Yes Psycho Social History: Positive for:: Anxiety Hx Depression (sometimes) Denies:: Bipolar Disorder Suicide Attempt Hx Surgeries?: Yes (hysterectomy) Hx Any Other Health Problems?: No Other History: Positive for:: Cancer (cervical) Hospitalization Denies:: Thyroid Disease History Blood Transfusions: Positive for:: Accept Blood Products? Blood Transfuse Reaction (hives) Blood Transfusions (During hysterectomy) Hx Diabetes: Yes (used to) Hx Alcohol Use: Yes ("Occasionally")Alcoholic Drinks Per Day: 3Hx Substance Use: Yes ([facility] today, does not admit to other substances) Smoking Status: Never Smoker Have You Smoked inLast 12 mo: No Stop/Bang Treated for Sleep Apnea?: No Do You Have a CPAP Machine?: No S-Snoring: Do You Snore Loudly: No T-Tired: feel tired, fatigued: No O-Obsered: Observed not breath: No P-Blood Pressure: treated: No B- Body Mass Index > 35 kg/m2: Yes A- Age over 50: No N- Neck Large Circumference: Yes G- Gender Male: No ANASTASIA Total Score: 3 ANASTASIA Risk Assessment: High Risk, =/>3 Yes ANASTASIA Category 2: Yes Risk Assessment Category Category 1A: Patient has history of documented sleep apnea, and HAS NOT received any narcotic, sedative or anesthesia administration during this stay. Category 1B: Patient has history of documented sleep apnea, and HAS received any narcotic , sedative or anesthesia administration during this stay Category 2: Patient has SUSPECTED Obstructive Sleep Apnea, and HAS received any narcotic , sedative or anesthesia administration during this stay. Category 3: Patient has SUSPECTED Obstructive Sleep Apnea and HAS NOT received narcotic, sedative or anesthesia administration during this stay. Category 4: Outpatient in Procedural Areas with known sleep apnea or who screen positive for High Risk via the STOP/BANG questionnaire. Exam Exam Vital Signs Vital Signs Date Time Temp Pulse Resp B/P Pulse Ox O2 Delivery O2 Flow Rate FiO2 03/04/17 17:18 36.7 97 21 123/72 98 Room Air General Appearance: Alert, Oriented X3, Cooperative, Mild Distress HEENT/AIRWAY: MP 2, Neck Movement (from, tmd 3 fb) Lungs: Clear to Auscultation, Normal Air Movement Heart: Exam Unremarkable, Regular Rate/Rhythm, No Murmurs/Rubs/Gallops Meds/Labs/Diagnostics Admission Meds Current Medications Acetaminophen 975 mg 975 mg ONCE ONCE PO Last administered on 03/03/17 22:24; Start 03/03/17 at 22:05; Stop 03/03/17 at 22:06; Status DC Sodium Chloride (Normal Saline) 1,000 ml @ 0 mls/hr Q0M ONCE IV Last administered on 03/04/17 01:01; Start 03/03/17 at 23:22; Stop 03/03/17 at 23:23; Status DC Heparin Sodium (Porcine) 5000 unit 5,000 unit Q8 SUBQ Last administered on 01:33; Start 03/04/17 at 00:30 Dextrose/Sodium Chloride (D5 1/2 Normal Saline) 1,000 ml @ 100 mls/hr Q10H IV Last administered on 03/04/17 17:48; Start 03/04/17 at 08:05 Labs Test 03/03/17 23:38 03/04/17 00:00 03/04/17 00:44 03/04/17 00:53 Prothrombin Time 10.1sec (8.1-12.5) Prothromb Time International Ratio 0.95ratio Total Bilirubin 0.5mg/dL (0.0-1.2) Aspartate Amino Transf (AST/SGOT) 20U/L (0-50) Alanine Aminotransferase (ALT/SGPT) 10U/L (0-32) Alkaline Phosphatase 115U/L (25-150) Total Protein 7.5g/dL (6.4-8.4) Albumin 3.7g/dL (3.4-5.0) Hold Kiser Top Tube Received (Received) White Blood Count 13.0th/mm3 (3.8-10.1) Red Blood Count 4.43mil/mm3 (3.90-5.20) Hemoglobin 12.6g/dL (12.0-15.6) Hematocrit 37.8% (35.0-46.0) Mean Corpuscular Volume 85.3fL (81-100) Mean Corpuscular Hemoglobin 28.4pg (27.0-35.0) Mean Corpuscular Hemoglobin Concent 33.3% (32.0-37.0) Red Cell Distribution Width 15.0% (12.3-15.4) Platelet Count 428bil/L (150-400) Neutrophils (%) (Auto) 85.6% (40-74) Lymphocytes (%) (Auto) 9.6% (14-46) Monocytes (%) (Auto) 4.3% (4-12) Eosinophils (%) (Auto) 0.1% (0-5) Basophils (%) (Auto) 0.2% (0-3) Alcohols < 10mg/dL (0-10) Test 03/04/17 04:00 03/04/17 05:35 Urine Color Yellow (YELLOW) Urine Appearance Cloudy (CLEAR,HAZY) Urine pH 7.0 (5.0-8.0) Urine Specific Lee 1.015 (1.003-1.035) Urine Protein Negativemg/dL (NEG,TRACE) Urine Glucose (UA) Negativemg/dL (NEGATIVE) Urine Ketones Tracemg/dL (NEGATIVE) Urine Occult Blood Negative (NEGATIVE) Urine Nitrite Negative (NEGATIVE) Urine Bilirubin Negative (NEGATIVE) Urine Urobilinogen 1.0mg/dL (NORMAL) Urine Leukocyte Esterase Negative (NEGATIVE) Urine RBC 0-2/hpf (0-2) Urine WBC 6-10/hpf (0-5) Urine Epithelial Cells Many/hpf (NONE-MOD) Urine Crystals None seen (NONE SEEN) Urine Bacteria Many/hpf (NONE-FEW) Urine Hyaline Casts None/lpf (NONE) Urine Granular Casts None seen (NONE SEEN) Urine Waxy Casts None seen (NONE SEEN) Urine Red Blood Cell Casts None seen (NONE SEEN) Urine White Blood Cell Casts None seen (NONE SEEN) Urine Mucus None seen (None Seen) Urine Trichomonas None seen (NONE SEEN) Urine Yeast None (NONE SEEN) Urinalysis Comment None Urine Culture Reflexed Indicated Urine Opiates Screen Positive Urine Methadone Screen Negative Urine Barbiturates Screen Negative Urine Amphetamines Screen Positive Urine Benzodiazepines Screen Negative Urine Cocaine Metabolite Screen Negative Urine Cannabinoids Screen Positive Sodium Level 141mEq/L (134-144) Potassium Level 3.9mEq/L (3.5-5.2) Chloride Level 107mEq/L (97-108) Carbon Dioxide Level 21mmol/L (18-29) Blood Urea Nitrogen 8mg/dL (6-20) Creatinine 0.49mg/dL (0.57-1.00) Estimat Glomerular Filtration Rate 202mL/min (>59) Glucose Level 89mg/dL (60-99) Calcium Level 8.2mg/dL (8.5-10.1) Plan Impression Patient chart reviewed, patient interviewed and anesthestic plan with risks, benefits, and alternatives discussed, and informed consent obtained. NPO per Anesth. Guidelines: Yes ASA Physical Status: ASA2 Mod Systemic Disease Anesthetic Plan: GA Bene/Risks/Altern/Consents: Yes HP Complete Prior to Induction: Yes Julio Hinton MD Mar 04, 2017 18:13
--- NOTE | 2017-03-04 19:05 | NUR ---
TO OR IV saline locked. Report given to MALCOM Yang. Transported to OR via a hospital bed. Family is aware.
[2017-03-04] MEDS ORDERED: Bupivacaine Liposome 1.3% 20 mL Inj ONE (19:50)
[2017-03-04] MEDS ORDERED: EPHEDrine Sulfate 50 mg/mL Inj IVPUSH PRN (19:55)
[2017-03-04] MEDS ORDERED: Lactated Ringer's 1,000 ML IV SCH (19:55)
[2017-03-04] MEDS ORDERED: EPHEDrine Sulfate 50 mg/mL Inj IM PRN (19:55)
[2017-03-04] MEDS ORDERED: Lactated Ringer's 500 ML IV PRN (19:55)
[2017-03-04] MEDS ORDERED: Atropine 0.4 mg/mL Inj IVPUSH PRN (19:55)
[2017-03-04] MEDS ORDERED: Ondansetron 2 mg/mL 2 mL Inj IVPUSH PRN ×2 (19:55→21:35)
[2017-03-04] MEDS ORDERED: Phenylephrine 10,000 mCg/mL Inj IVPUSH PRN (19:55)
[2017-03-04] MEDS ORDERED: Bupivacaine-MPF 0.5% W/EPI 30 mL Inj INJ ONE (20:22)
[2017-03-04] MEDS ORDERED: Sodium Chloride Bacteriostatic 30 mL Inj INJ ONE (20:23)
[2017-03-04] MEDS ORDERED: HYDROmorphone 2 mg/mL Inj IVPUSH PRN (21:35)
[2017-03-04] MEDS ORDERED: diphenhydrAMINE 25 mg Capsule PO PRN (21:35)
[2017-03-04] MEDS: fentaNYL-PF 50 mCg/mL 2 mL Inj IVPUSH PRN ×2 (22:00→22:25)
[2017-03-04] MEDS: oxyCODONE-Acetamin 10-325 mg Tablet PO PRN (23:00)
[2017-03-04] MEDS: 0.9% Sodium Chloride 1,000 ML IV SCH (23:01)
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
--- NOTE | 2017-03-04 23:19 | PCM.ANEP1 ---
Post Anesthesia PACU Phase 1 Assessment Date of Service: Mar 04, 2017 Vital Signs Vital Signs Date Time Temp Pulse Resp B/P Pulse Ox O2 Delivery O2 Flow Rate FiO2 03/04/17 23:06 Supplement Oxygen 03/04/17 22:59 36.7 76 20 129/80 100 Room Air 03/04/17 22:40 36.1 81 10 134/76 99 Nasal Cannula 2 03/04/17 22:35 80 12 117/86 99 Nasal Cannula 2 03/04/17 22:30 74 14 127/71 99 Nasal Cannula 2 03/04/17 22:25 74 12 135/92 99 Nasal Cannula 2 03/04/17 22:20 84 15 161/97 99 Nasal Cannula 2 03/04/17 22:15 85 14 146/99 99 Nasal Cannula 2 03/04/17 22:10 80 14 150/87 96 Nasal Cannula 2 03/04/17 22:05 80 14 145/93 96 Nasal Cannula 2 03/04/17 22:00 75 14 145/90 96 Nasal Cannula 2 03/04/17 21:55 73 18 140/97 97 Nasal Cannula 2 03/04/17 21:50 36.5 80 20 135/86 98 Nasal Cannula 2 03/04/17 17:18 36.7 97 21 123/72 98 Room Air Anesthetic Administered: GA Level of Alertness: Awake, talking MCELROY's with Equal Strength: Yes Pain: Yes Pain Scale Score: 5 Nausea or Vomiting: No CV Function & Hydration Stable: Yes Airway Device: none Oxygen Delivery: Room Air Lungs: Clear to Auscultation, Normal Air Movement Dermatome Level: Full Sensation PACU Phase 2 Assessment Complications: No Follow up Care: No Patient Instructions Provided: N/A Julio Hinton MD Mar 04, 2017 23:19
--- NOTE | 2017-03-05 00:10 | NUR ---
Post Op Pt. came back from PACU at 2240. Pt. on 2 liters of oxygen via nc. Pt. has sheldon present patent and draining to gravity. Yellow urine present in sheldon. Pt's peripheral IV intact and patent. Pt. was in pain. Percocet PO given. Family in room. Will continue to monitor.
[2017-03-05] MEDS: CeFAZolin Inj 2 GM in IV Premix 1 EACH IV SCH ×2 (00:24→07:55)
[2017-03-05] MEDS: Sodium Chloride LOK Flush 10 mL Syringe IV SCH ×3 (00:30→17:05)
[2017-03-05] MEDS: Heparin 5,000 Unit/mL Inj SUBQ SCH (00:33)
[2017-03-05] MEDS: Dextrose 5% 0.45% NaCl 1,000 ML IV SCH ×2 (03:41→14:05)
[2017-03-05] MEDS: oxyCODONE-Acetamin 10-325 mg Tablet PO PRN ×5 (04:32→21:02)
[2017-03-05] MEDS: HYDROmorphone 1 mg/mL Inj IVPUSH PRN (04:33)
[2017-03-05 04:35] VITALS: BP 122/84; PULSE 85; RESP 20; O2SAT 100
[2017-03-05 06:01] LABS: BASOPHILS % (AUTO) 0 % (0-3); EOSINOPHILS % (AUTO) 0 % (0-5); MONOCYTES % (AUTO) 1.3 % (4-12); Mean Corpuscular Hemoglobin 28.7 pg (27.0-35.0); Mean Corpuscular Volume 85.7 fL (81-100); Platelet Count 362 bil/L (150-400)
[2017-03-05] MEDS: 0.9% Sodium Chloride 1,000 ML IV SCH ×2 (07:34→17:06)
[2017-03-05 07:58] VITALS: BP 122/75; PULSE 69; RESP 20; O2SAT 99
--- NOTE | 2017-03-05 08:50 | PCM.PNORTH ---
Subjective Date of Service: Mar 05, 2017 Visit Information: Reason for Visit L Tibial Plateau Fracture Surgery/Surgery Date left tibial plateau ORIF 03/04/2017 Post-Op Day # 1 Date of Admission: Mar 03, 2017 at 23:44 Hospital Day # Subjective Patient is very sleepy but awakens for exam. She complains of hand fracture site. She does not like the brace because it comes up too high in the groin. Postop General: No Shortness of Breath, No Chest Pain Pain Management: PO, IV Push Objective Exam Objective Patient is seen lying in bed Vital Signs and I/O Vital Sign - Last Date Time Temp Pulse Resp B/P Pulse Ox O2 Delivery O2 Flow Rate FiO2 03/05/17 07:58 36.6 69 20 122/75 99 Room Air 03/04/17 22:40 2 Intake and Output 03/04/17 03/04/17 03/05/17 Cumulative From/Thru 15:00 23:00 07:00 03/03/17 20:44 - 03/05/17 05:55 Intake Total 383 ml 1985 ml 1319 ml 4511 ml Output Total 800 ml 1600 ml 2500 ml Balance 383 ml 1185 ml -281 ml 2011 ml Intake Oral 0 ml 640 ml 640 ml IV Total 383 ml 1985 ml 679 ml 3871 ml Output Urine Total 750 ml 1600 ml 2450 ml Estimated Blood Loss 50 ml 50 ml # Voids 1 # Bowel Movements 0 0 0 Lab & Micro Results Laboratory Tests Test 03/05/17 05:40 White Blood Count 8.7th/mm3 (3.8-10.1) Red Blood Count 4.28mil/mm3 (3.90-5.20) Hemoglobin 12.3g/dL (12.0-15.6) Hematocrit 36.7% (35.0-46.0) Mean Corpuscular Volume 85.7fL (81-100) Mean Corpuscular Hemoglobin 28.7pg (27.0-35.0) Mean Corpuscular Hemoglobin Concent 33.5% (32.0-37.0) Red Cell Distribution Width 14.7% (12.3-15.4) Platelet Count 362bil/L (150-400) Neutrophils (%) (Auto) 92.0% (40-74) Lymphocytes (%) (Auto) 6.0% (14-46) Monocytes (%) (Auto) 1.3% (4-12) Eosinophils (%) (Auto) 0% (0-5) Basophils (%) (Auto) 0% (0-3) Microbiology 03/04/17 Urine Culture - Preliminary, Resulted Result Diagram: 03/05/17 0540 03/04/17 0535 General Appearance: Alert, Oriented X3, Cooperative, No Acute Distress Extremities: Distal Pulses Palpable, No Compartment Syndrom Noted, Thigh & Calf Soft/Nontender Postop Sensory Motor: Distal Motor Intact, Distal Sensation Intact, NVI Distally SURGICAL WOUND : Wound Location/Description Left lower extremity: Surgical dressing is clean, dry and intact. Knee postop hinged knee brace is adjusted and made a little shorter at the top. It is moved down the leg just a little bit and then shortened so it is not resting on the ankle bones. Incision General Appearance: No Direct Observation Activity: Activity per PT Catheters: Urethral 2 Way Ellis Assessment & Plan Impression POD #1 status post left tibial plateau ORIF Problems: Plan Weightbearing: Nonweightbearing left lower extremity with walker x 12 weeks Knee immobilizer left lower extremity, knee locked in extension for 4-6 weeks DVT prophylaxis: Lovenox 40 mg subcutaneous 3 weeks followed by aspirin 325 mg twice a day 3 weeks Physical therapy for transfers, progressive ambulation, therapeutic exercise Patient will need a front wheeled walker and wheelchair with left leg extension at discharge MADDIE Ellis later today if patient is able to get up to bedside commode Wound care: Leave dressing in place until first postoperative visit. Keep dressing clean and dry Discharge plan: Discharge home in 1-2 days. Follow-up plan: In 2 weeks at [facility] with ANGEL for wound check and at [address] Hinson with x-rays Pain Management: Dilaudid, Percocet 10/325, Toradol, Vistaril VTE Prophylaxis: Sub-Q Heparin (Unfractionated) Resuscitation Status: CPR: Attempt Resuscitation Hilmar-IrwinVibha cary PA-C Mar 05, 2017 08:49
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
[2017-03-05 09:28] VITALS: PULSE 92; RESP 20; O2SAT 98
--- NOTE | 2017-03-05 10:43 | NUR ---
Evaluation completed. Please go to "Notes" then click on "Assessments and Notes" (bottom left corner of screen). Then select appropriate discipline tab on top of screen.
[2017-03-05 12:46] VITALS: BP 123/78; PULSE 78; RESP 18; O2SAT 99
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
--- NOTE | 2017-03-05 16:59 | NUR ---
Social work Note - CD assessment Pt met with Karen - [facility] CDP - Karen identifies that Pt will follow up with [facility] in the office to access services for Substance Use Treatment. Community Resources provided. PRADIP Capps
--- NOTE | 2017-03-05 18:40 | NUR ---
POST-OP PROGRESS Percocet 10/325 mg PO 1 tab has been effective for pain control. Patient rated her pain as 3-4/10 after her pain medication. Tolerating liquids PO and her diet well. Denies nausea. No emesis noted. Denies SOB. Patient has been able to get OOB and ambulate from the bed to the bathroom with SBA and the FWW. She has been compliant with her NWB status. Tolerated activity fairly. IFC d/cd at 1420. Patient has been able to void post IFC removal. No problems voiding. Dressing is CDI. Brace is in place. Using her call light appropriately. She does not attempt to get OOB on her own.
[2017-03-05 20:33] VITALS: BP 122/81; PULSE 87; RESP 20; O2SAT 99
[2017-03-05] MEDS: hydrOXYzine Pamoate 25 mg Capsule PO PRN (21:02)
[2017-03-06] MEDS: Dextrose 5% 0.45% NaCl 1,000 ML IV SCH ×2 (00:05→10:05)
[2017-03-06] MEDS: Sodium Chloride LOK Flush 10 mL Syringe IV SCH ×2 (00:30→11:03)
[2017-03-06] MEDS: 0.9% Sodium Chloride 1,000 ML IV SCH ×2 (03:34→11:40)
--- NOTE | 2017-03-06 04:22 | NUR ---
Emotional status On initial assessment, patient complained of pain 8/10 on pain scale. Pain medication administered along with Vistaril. Patient immediately requested help to use the restroom. Nurse assisted patient. Patient appeared in good spirits on return to bed. Patient immediately started crying stating pain was too much to bear. Patient taught to deep breath and relax. Toradol IVP administered for pain. Call light within reach. Care continues.
[2017-03-06] MEDS: hydrOXYzine Pamoate 25 mg Capsule PO PRN (04:33)
[2017-03-06] MEDS: oxyCODONE-Acetamin 10-325 mg Tablet PO PRN ×2 (04:34→12:43)
[2017-03-06 05:17] VITALS: BP 129/83; PULSE 76; RESP 20; O2SAT 99
[2017-03-06 06:09] LABS: BASOPHILS % (AUTO) 0.1 % (0-3); EOSINOPHILS % (AUTO) 0.6 % (0-5); MONOCYTES % (AUTO) 9.2 % (4-12); Mean Corpuscular Hemoglobin 28.2 pg (27.0-35.0); Mean Corpuscular Volume 86.5 fL (81-100); NEUTROPHILS % (AUTO) 48.4 % (40-74); Platelet Count 370 bil/L (150-400)
--- NOTE | 2017-03-06 08:02 | PCM.PNORTH ---
Subjective Date of Service: Mar 06, 2017 Visit Information: Reason for Visit L Tibial Plateau Fracture Surgery/Surgery Date Post-Op Day # Date of Admission: Mar 03, 2017 at 23:44 Hospital Day # Subjective Patient is status post day #2 left tibial plateau fracture ORIF. Patient states she is doing pretty well, states she did not sleep supine well and was tossing and turning. She confirms that her pain is well controlled. Also understands that she will not be able to walk on this leg, must remain in the brace, she will need a wheelchair. She would like to go home today if possible. Postop General: No Shortness of Breath, No Chest Pain Pain Management: PO, IV Push Objective Exam Objective Patient is alert and oriented 3. Answering questions appropriately. Patient is sitting up in the bed and not in acute distress today. Dressing and brace are clean dry and intact. Calf is soft and nontender. Sensation and pulses intact, patient able to wiggle toes. Patient gets out of bed and ambulates nonweightbearing with a walker to the restroom on her own, did very well. Vital Signs and I/O Vital Sign - Last Date Time Temp Pulse Resp B/P Pulse Ox O2 Delivery O2 Flow Rate FiO2 03/06/17 05:17 36.7 76 20 129/83 99 Room Air 03/04/17 22:40 2 Intake and Output 03/05/17 03/05/17 03/06/17 Cumulative From/Thru 15:00 23:00 07:00 03/03/17 20:44 - 03/06/17 06:31 Intake Total 1620 ml 1040 ml 7171 ml Output Total 1550 ml 1050 ml 5100 ml Balance 70 ml -10 ml 2071 ml Intake Oral 1620 ml 1040 ml 3300 ml IV Total 3871 ml Output Urine Total 1550 ml 1050 ml 5050 ml Estimated Blood Loss 50 ml # Voids 1 # Bowel Movements 0 0 Lab & Micro Results Laboratory Tests Test 03/06/17 05:30 White Blood Count 6.8th/mm3 (3.8-10.1) Red Blood Count 3.79mil/mm3 (3.90-5.20) Hemoglobin 10.7g/dL (12.0-15.6) Hematocrit 32.8% (35.0-46.0) Mean Corpuscular Volume 86.5fL (81-100) Mean Corpuscular Hemoglobin 28.2pg (27.0-35.0) Mean Corpuscular Hemoglobin Concent 32.6% (32.0-37.0) Red Cell Distribution Width 15.0% (12.3-15.4) Platelet Count 370bil/L (150-400) Neutrophils (%) (Auto) 48.4% (40-74) Lymphocytes (%) (Auto) 41.6% (14-46) Monocytes (%) (Auto) 9.2% (4-12) Eosinophils (%) (Auto) 0.6% (0-5) Basophils (%) (Auto) 0.1% (0-3) Microbiology 03/04/17 Urine Culture - Preliminary, Resulted Result Diagram: 03/06/17 0530 03/04/17 0535 SURGICAL WOUND : Incision General Appearance: No Direct Observation Activity: Activity per PT Catheters: Urethral 2 Way Ellis Assessment & Plan Impression Status post day #2 left tibial plateau fracture ORIF. Patient's pain is stable , she would like to go home today if possible. Problems: Plan Weightbearing: Nonweightbearing left lower extremity with walker x 12 weeks Knee immobilizer left lower extremity, knee locked in extension for 4-6 weeks DVT prophylaxis: Lovenox 40 mg subcutaneous 3 weeks followed by aspirin 325 mg twice a day 3 weeks Physical therapy for transfers, progressive ambulation, therapeutic exercise Patient will need a front wheeled walker and wheelchair with left leg extension at discharge. Prescription for both of these was placed in the chart today. Left prescription in the chart for Percocet 5/325 mg tablets as well as Vistaril and Lovenox. Wound care: Leave dressing in place until first postoperative visit. Keep dressing clean and dry Discharge plan: Discharge home as soon as today if patient is medically stable. Follow-up plan: In 2 weeks at [facility] with ANGEL for wound check and at [address] Hinson with x-rays VTE Prophylaxis: Sub-Q Heparin (Unfractionated) Resuscitation Status: CPR: Attempt Resuscitation Albert Esteban PA-C Mar 06, 2017 08:02
[2017-03-06 08:25] VITALS: PULSE 88; RESP 16; O2SAT 98
[2017-03-06] MEDS ORDERED: OXYC-466 PO (09:48)
--- NOTE | 2017-03-06 09:57 | PCM.DIMED ---
Discharge Instructions Date of Service Mar 06, 2017 Dates of Hospitalization Mar 03, 2017 at 23:44 Discharge Diagnosis Discharge Diagnosis Left Tibial Plateau Fracture Medication Instructions Additional med instructions Please take percocet 1tab every four hours as needed for your pain. Please continue Lovenox injection for 3weeks for blood clot prevention Diet Discharge Diet: No restrictions Activity Discharge Activity: No restrictions Patient Instructions Patient Instructions You were hospitalized with distal left tibial fracture. You were underwent surgery, tolerated well. Please follow recommendation from Orthopedic service as below Instruction from Orthopedic service Weightbearing: Nonweightbearing left lower extremity with walker x 12 weeks Knee immobilizer left lower extremity, knee locked in extension for 4-6 weeks DVT prophylaxis: Lovenox 40 mg subcutaneous 3 weeks followed by aspirin 325 mg twice a day 3 weeks- Physical therapy for transfers, progressive ambulation, therapeutic exercise Wound care: Leave dressing in place until first postoperative visit. Keep dressing clean and dry Follow-up plan: In 2 weeks at [facility] with PA for wound check and at [address] Hinson with x-rays Follow-up Provider: Terrell Hinson DO Follow-up with PCP in: 2 weeks Nathalie Fischer MD Mar 06, 2017 09:56
[2017-03-06] MEDS ORDERED: LOV40 SUBQ (10:06)
[2017-03-06 11:33] VITALS: BP 125/78; PULSE 90; RESP 18; O2SAT 98
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
--- NOTE | 2017-03-06 14:19 | DRSVH ---
PROCEDURE: CT KNEE LEFT W/O CONTRAST ([id number]) INDICATIONS: 36 year-old female with tibial plateau fracture. TECHNIQUE: Noncontrast 1-1.5 mm axial sections acquired from the mid-patella to the proximal tibia, with coronal and sagittal reformats. COMPARISON: [facility], CR, XR KNEE 1 OR 2VW LT, 03/03/2017, 22:19. FINDINGS: Preliminary interpretation rendered by [facility]. Image quality: Excellent. Bones: Comminuted intra-articular fracture of the lateral tibial plateau is again noted, with up to 7 mm impaction of some of the fracture components. There is vertical extension of fracture through the lateral tibial metaphysis. Other bones appear intact. No suspicious lytic or blastic bony lesions. P atellar alignment is normal. Soft tissues: There is large lipohemarthrosis. The visualized musculature demonstrates normal overall bulk. The extensor mechanism appears intact. The menisci and other knee ligaments are not able to be visualized. IMPRESSION: Constellation of findings consistent with Schatzker 2 split depression fracture of the la teral tibial plateau, with associated large lipohemarthrosis. Dictated by: Grzegorz Guerra M.D. on 03/04/2017 at 9:20 Approved by: Grzegorz Guerra M.D. on 03/04/2017 at 9:27
--- NOTE | 2017-03-06 14:53 | NUR ---
Social Work: Readiness for Discharge/Multidisciplinary Rounds D: EMR reviewed. Pt is on day 3 of hospitalization. Pt discussed in multidisciplinary rounds and is ready for discharge home today. SANDIE met with pt at bedside to discuss rx for DME, transportation, and capacity for self-care once discharged. Pt stated her mother is out of town until Thursday but she will go to her mother's house and her friend Timothy Nolasco [phone] will provide transport and care until her mother returns. SANDIE faxed rx to [facility] and confirmed rx will be filled - no co-pay. [facility] confirmed they don't provide DME. SW faxed DME rx to [facility] - [facility] is not able to deliver to [place] until Thursday. SW discussed this with pt and pt's cousin. SW discussed options for DME including picking up equipment at [facility] in [place] - SW provided address and phone number. Pt stated she already has crutches at home and a walker she can borrow. SW also suggested looking at [employer] or the [employer] for a wheelchair if pt is unable to acquire one through insurance or co-pay is too high. Pt and family agreeable to plan. Pt's cousin and friend will take pt to [facility] pharmacy to get rx and then help pt acquire wheelchair. Pt notified of rx for DME included in discharge folder. All agreeable to discharge plan. A: Pt who is independent at baseline. P: Pt to discharge home with family via POV. Family will transport pt to get rx and DME. All updated and agreeable to plan. JUAN LUIS Rivera
--- NOTE | 2017-03-06 15:30 | NUR ---
Social Work: Discharge D: EMR reviewed. Pt is on day 3 of hospitalization. Pt discussed in multidisciplinary rounds and is ready for discharge home today. SANDIE met with pt at bedside to discuss rx for DME, transportation, and capacity for self-care once discharged. Pt stated her mother is out of town until Thursday but she will go to her mother's house and her friend Timothy Nolasco [phone] will provide transport and care until her mother returns. SANDIE faxed rx to [facility] and confirmed rx will be filled - no co-pay. [facility] confirmed they don't provide DME. SW faxed DME rx to [facility] - [facility] is not able to deliver to [place] until Thursday. SW discussed this with pt and pt's cousin. SW discussed options for DME including picking up equipment at [facility] in [place] - SW provided address and phone number. Pt stated she already has crutches at home and a walker she can borrow. SW also suggested looking at [employer] or the [employer] for a wheelchair if pt is unable to acquire one through insurance or co-pay is too high. Pt and family agreeable to plan. Pt's cousin and friend will take pt to [facility] pharmacy to get rx and then help pt acquire wheelchair. Pt notified of rx for DME included in discharge folder. All agreeable to discharge plan. A: Pt who is independent at baseline. P: Pt to discharge home with family via POV. Family will transport pt to get rx and DME. All updated and agreeable to plan. JUAN LUIS Rivera
--- NOTE | 2017-03-06 15:45 | NUR ---
discharge SW set up Rx to be filled at [facility] pharmacy. Pt aware and will go there to p/u her meds. Pt provided Rx for DME to get crutches, w/c and walker. Pt states she has crutches at home and that her cousin has w/c at home that she can use. stressed importance of remaining nonweightbearing on Left leg and d/c instructions from ortho MD re: dressing remaining in place with knee immobilizer in extension. Pt sent with Rx for DME and provided a list of locations to check out for crutches Pt verbalized understanding of instructions. Pt taken out to the car with family and [employer] in w/c. Pt took all belongings home with her.
== END 2017-03-06 15:45 | disposition home or self-care (01) | DRG 493 ==
LOC: SED 20:28 → OSC 23:44
PROVIDERS: ADMIT Internal Medicine; ATTEND Internal Medicine
PROC: 0QUH07Z Supplement Left Tibia with Autologous Tissue Substitute, Open Approach (ICD-10-PCS; 2017-03-04)
PROC: 0QSH04Z Reposition Left Tibia with Internal Fixation Device, Open Approach (ICD-10-PCS; principal; 2017-03-04 19:00)
DX: S82.145A Nondisplaced bicondylar fracture of left tibia, initial encounter for closed fracture (principal); F11.20 Opioid dependence, uncomplicated; F10.220 Alcohol dependence with intoxication, uncomplicated; Y90.0 Blood alcohol level of less than 20 mg/100 ml; Z79.52 Long term (current) use of systemic steroids; W17.89XA Other fall from one level to another, initial encounter; Y93.9 Activity, unspecified; Y92.018 Other place in single-family (private) house as the place of occurrence of the external cause; G89.29 Other chronic pain; Z76.5 Malingerer [conscious simulation]; R73.03 Prediabetes; V89.2XXA Person injured in unspecified motor-vehicle accident, traffic, initial encounter

== ENCOUNTER 2017-03-08 19:28 | Emergency (ER) | payer MEDICAID, OTHER ==
[~2017-03-08] VITALS: Ht 154.9 cm; Wt 97.3 kg
[~2017-03-08 19:28] MED LIST changes: -AZIT250T4 PO; -BENZ-12 PO; -GUAI10LI PO; -HYDR-4003 PO; +LOV40 SUBQ; -NITR100 PO; -ONDA-54 PO; -ONDA8TAB10 PO; +OXYC-466 PO; -OXYC1TAB24 PO; -PRE10 PO; -PRE20 PO
[2017-03-08 19:30] VITALS: BP 135/91; PULSE 113; RESP 20; O2SAT 100
[2017-03-08] MEDS ORDERED: 0.9% Sodium Chloride 1,000 ML IV ONE (20:39)
[2017-03-08] MEDS: HYDROmorphone 1 mg/mL Inj IVPUSH PRN ×2 (20:58→22:43)
[2017-03-08 21:00] LABS: BASOPHILS % (AUTO) 0.3 % (0-3); MONOCYTES % (AUTO) 6.5 % (4-12); Mean Corpuscular Hemoglobin 28.4 pg (27.0-35.0); Mean Corpuscular Volume 85.6 fL (81-100); NEUTROPHILS % (AUTO) 60.9 % (40-74); Platelet Count 463 bil/L (150-400)
--- NOTE | 2017-03-08 21:15 | ED.REPORT ---
HPI-Extremity Problem Lower Date of Service Mar 08, 2017 ED Provider: Lencho Phelan DO Pt is a 36 year old female with a hx of EtOH abuse and asthma presenting to the ED complaining of left knee pain post surgery 2 days ago. She had surgery for a left tibial plateau fracture and reports severe throbbing, aching pain ever since. Pain was initially intermittent but has become constant. Pt has been taking 10 mg Percocet every 4 hours with mild relief. Has chills. Denies any fever, nausea, vomiting, diarrhea, or SOB. Nursing Notes Stated Complaint: LEFT KNEE PAIN, POST SURGERY Chief Complaint: Extremity Trauma Nursing Notes Reviewed: Yes Allergies: Coded Allergies: propoxyphene (Verified Allergy, Severe, Breathing problems and tacycardia , 03/08/17) onion (Verified Allergy, Intermediate, Rash and swelling, 03/08/17) Sulfa (Sulfonamide Antibiotics) (Verified Allergy, Unknown, 03/08/17) Uncoded Allergies: ALL NAUSEA MEDS EXCEPT ZOFRAN (Allergy, Intermediate, ITCH, HIVES, 11/02/12) Scheduled Albuterol HFA (Proair HFA) 8.5 Gm Hfa.aer.ad 2 PUFFS INHALATION Q4H Enoxaparin (Lovenox) 40 Mg/0.4 Ml Syringe 40 MG SUBQ DAILY Scheduled PRN Ibuprofen (Ibuprofen) 600 Mg Tablet 600 MG PO QID PRN PRN For Pain Oxycodone (Roxicodone) 5 Mg Tablet 10 MG PO Q6H PRN PRN For Pain oxyCODONE-Acetaminophen 10-325 mg (oxyCODONE-Acetaminophen 10-325 mg) 1 Each Tablet 1 TAB PO Q3H PRN PRN For Pain General Time Seen by MD: 20:05 Chief Complaint Knee injury left Hx Obtained From: Patient Arrived By: Walk-in Onset Occurred: 2 days ago Symptom Duration: Since onset Location: : Knee left Quality: Aching, Painful, Throbbing Severity: Current: Severe Severity: Maximum: Severe Recent Healthcare: No recent doctor visit, Previous surgery Similar Sx Previous: Yes Past Medical History Past Medical History asthma kidney stones anxiety uterine cancer chronic pain Past Surgical History Hysterectomy 2008 x3 Family History Noncontributory Smoking History Never Smoker Social History Alcohol Use: Denies alcohol use Drug Use: THC Other Social History: Good social support, Frequent ED visitor, , Lives with children, Local resident Ambulatory Status Independent Review of Systems Constitutional: Denies: Fever Complete sys rev & neg: except as marked. Respiratory: Denies: Shortness of breath GI: Denies: Diarrhea, Nausea, Vomiting Physical Exam Initial Vital Signs Vital Signs (First) Date Time Temp Pulse Resp B/P Pulse Ox O2 Delivery O2 Flow Rate FiO2 03/08/17 19:30 37.1 113 20 135/91 100 Room Air Initial VS: Reviewed General/Constitutional: Well-developed, Well-nourished Head / Eyes: Atraumatic, Normocephalic, PERRL ENT: Mucous membranes moist, Conjunctiva normal, No scleral icterus Neck: Supple, Non-tender, Full range of motion Respiratory: Breath sounds normal, Clear to auscultation, No respiratory distress Cardiovascular: Regular rate & rhythm, Heart sounds normal, Intact distal pulses Abdomen / GI: Soft, Non-tender, No guarding, No rebound, No distention Upper Extremities: Vascular intact, Neuro intact, No swelling Skin: Warm, Dry, No cyanosis Left Thigh: Positive: Tenderness present... (Moderate) Left Knee: Positive: Swelling present... (Mild), Tenderness present... (Mild) Well approximated, well healing surgical scar with dashawn and no signs of erythema or pus. Ankle / Foot: Atraumatic, Inspection NL, No swelling, No erythema Interpretation & Diagnostics Lab Results Interpretation Result Diagram: 03/08/17204903/08/172049 Test 03/08/17 20:50 White Blood Count 8.7th/mm3 (3.8-10.1) Red Blood Count 4.58mil/mm3 (3.90-5.20) Hemoglobin 13.0g/dL (12.0-15.6) Hematocrit 39.2% (35.0-46.0) Mean Corpuscular Volume 85.6fL (81-100) Mean Corpuscular Hemoglobin 28.4pg (27.0-35.0) Mean Corpuscular Hemoglobin Concent 33.2% (32.0-37.0) Red Cell Distribution Width 15.4% (12.3-15.4) Platelet Count 463bil/L (150-400) Neutrophils (%) (Auto) 60.9% (40-74) Lymphocytes (%) (Auto) 26.2% (14-46) Monocytes (%) (Auto) 6.5% (4-12) Eosinophils (%) (Auto) 6.0% (0-5) Basophils (%) (Auto) 0.3% (0-3) D-Dimer 2.62mg/L FEU (<0.50) Sodium Level 140mEq/L (134-144) Potassium Level 3.7mEq/L (3.5-5.2) Chloride Level 103mEq/L (97-108) Carbon Dioxide Level 24mmol/L (18-29) Blood Urea Nitrogen 6mg/dL (6-20) Creatinine 0.44mg/dL (0.57-1.00) Estimat Glomerular Filtration Rate 229mL/min (>59) Glucose Level 107mg/dL (60-99) Lactic Acid Level 0.9mmol/L (0.4-2.0) Calcium Level 8.6mg/dL (8.5-10.1) Total Bilirubin 0.5mg/dL (0.0-1.2) Aspartate Amino Transf (AST/SGOT) 41U/L (0-50) Alanine Aminotransferase (ALT/SGPT) 19U/L (0-32) Alkaline Phosphatase 124U/L (25-150) Total Protein 7.5g/dL (6.4-8.4) Albumin 3.9g/dL (3.4-5.0) US Soft Tissue/Musculoskeletal LEFT LEG US DVT: Negative for DVT. Exam Performed by: Radiologist Exam Interpreted by: Radiologist Re-Eval/Medical Decision Med Decision/Clinical Course Patient is a 36-year-old female with recent tibial plateau fracture on left side treated with ORIF without complications 03/04/2017. Patient was discharged from the hospital 03/06/2017. She has uncontrolled achy throbbing pain that is worsening since surgery. Concern for infection, deep vein thrombosis, hematoma. Patient has been taking subcutaneous Lovenox however d- dimer is elevated and posterior thigh is tender to palpation. Examination of her legs shows no evidence of infection, lactate is normal, white blood cell count is not elevated making infection very unlikely. Venous ultrasounds showed no evidence of deep vein thrombosis. Patient's leg was rewrapped and placed in knee immobilizer. She was discharged home in stable condition, questions were answered. Re-Evaluation/Progress : Time of Eval: 23:11 Patient Status: Condition improved Re-Evaluation/Progress Note: Discussed plan for discharge. Pt understands and agrees. Counseled Regarding: Diagnosis, Lab results, Need for follow-up, When/why to return to ED Discharge & Departure Impression: Primary Impression: Post-operative pain Additional Impression: Tibial plateau fracture, left Encounter type: subsequent encounter Fracture type: closed Fracture healing : with routine healing Qualified Code: S82.142D - Displaced bicondylar fracture of left tibia, subsequent encounter for closed fracture with routine healing Disposition: Home Discharge Condition All VS Reviewed: Yes Condition: Improved Patient Instructions: Crutch Instructions (ED), ORIF of a Leg Fracture (DC) Additional Instructions: Thank you for entrusting us with your care today. You do not have any signs of infection, or blood clot in your leg. You are likely having uncontrolled postoperative pain. Take these oxycodone 10 mg every 6 hours for the next 2 days, then taper down to you are 5 mg that were prescribed by your orthopedic surgeon. If you have worsening pain, or swelling of your foot please call Dr. Hinson's office. If you have fever greater than 101, racing heart, or pain that continues to not be controlled return to the emergency department. Continue taking your Lovenox as previously prescribed: Lovenox 40 mg subcutaneous 3 weeks followed by aspirin 325 mg twice a day 3 weeks Referrals: Mackenzie Sheriff (PCP) Gaelibcielo Attestation Portions of this note were transcribed by Iram Angulo. I, Dr. Phelan personally performed the history, physical exam and medical decision-making; I reviewed and confirmed the accuracy of the information in the transcribed note. Signed by : Lauren Shi, 03/08/2017. Attending Statement I personally took a history performed a physical. I concur with the note written as above. Acute arterial insufficiency ruled out based on history and physical examination and bounding pulses. DVT ruled out. No signs of infection. Postoperative pain was adequately treated. Short course of oxycodone prescribed for pain control. Orthopedic follow-up. Routine opiate warnings given. No signs of pulmonary blood. Compartments were soft. No apparent postoperative complications aside from pain. copies to: Mackenzie Sheriff Erika R DO Mar 08, 2017 20:49 IRAM ANGULO Mar 08, 2017 21:15 Lencho Phelan Mar 09, 2017 01:52
[2017-03-08 22:35] VITALS: BP 132/88; PULSE 99; RESP 18; O2SAT 99
[2017-03-08] MEDS ORDERED: OXYC-474 PO (22:38)
[2017-03-08] MEDS ORDERED: HYDROmorphone 0.5 mg/0.5 mL iSecure Syringe IVPUSH ONE (23:10)
[2017-03-08 23:40] VITALS: BP 134/89; PULSE 94; RESP 16; O2SAT 98
--- NOTE | 2017-03-09 08:24 | DRSVH ---
PROCEDURE: US VEINOUS LEG DUPLEX UNILATERAL, LEFT INDICATIONS: post op leg pain TECHNIQUE: Real-time imaging, as well as color and pulse Doppler interrogation, were performed of the lower extr emity deep veins from the inguinal ligament to the popliteal fossa. COMPARISON: None. FINDINGS: The deep veins are normally compressible, and free of intraluminal thrombus. Color and pu lse Doppler demonstrate normal phasic intraluminal flow. There is normal augmentation response to di stal compression maneuver. IMPRESSION: No DVT found. Dictated by: Anthony Umanzor M.D. on 03/09/2017 at 8:22 Approved by: Anthony Umanzor M.D. on 03/09/2017 at 8:22
== END 2017-03-08 23:41 | disposition home or self-care (01) ==
LOC: SED 19:28
DX: G89.18 Other acute postprocedural pain (principal); S82.142D Displaced bicondylar fracture of left tibia, subsequent encounter for closed fracture with routine healing; Z85.42 Personal history of malignant neoplasm of other parts of uterus; Z90.710 Acquired absence of both cervix and uterus; Z88.2 Allergy status to sulfonamides; Z88.6 Allergy status to analgesic agent
CPT/HCPCS: 36415; 80053; 83605; 85025; 85378; 93970; 96361; 96374; 96376; 99285; J1170; J7030

== ENCOUNTER 2017-03-14 20:35 | Emergency (ER) | payer MEDICAID, OTHER ==
[~2017-03-14] VITALS: Ht 154.9 cm; Wt 97.3 kg
[~2017-03-14 20:35] MED LIST changes: +OXYC-474 PO
[2017-03-14 20:44] VITALS: BP 111/77; PULSE 111; RESP 17; O2SAT 100
--- NOTE | 2017-03-14 21:25 | ED.REPORT ---
HPI-General Illness Date of Service Mar 14, 2017 ED Provider: Albert Ponce MD Patient is a 36 year old female status post surgery of the tibial plateau on the left side on 03/03/17 who presents to the ED complaining of a subjective fever since earlier today. Associated symptoms include chills, a "lump" on her left hip, left leg swelling, urinary frequency. She denies cough, dysuria, abdominal pain or shortness of breath. Nursing Notes Stated Complaint: CHILLS Chief Complaint: General Complaint Nursing Notes Reviewed: Yes Allergies: Coded Allergies: propoxyphene (Verified Allergy, Severe, Breathing problems and tacycardia , 03/08/17) onion (Verified Allergy, Intermediate, Rash and swelling, 03/08/17) Sulfa (Sulfonamide Antibiotics) (Verified Allergy, Unknown, 03/08/17) Uncoded Allergies: ALL NAUSEA MEDS EXCEPT ZOFRAN (Allergy, Intermediate, ITCH, HIVES, 11/02/12) Scheduled Albuterol HFA (Proair HFA) 8.5 Gm Hfa.aer.ad 2 PUFFS INHALATION Q4H Ciprofloxacin (Ciprofloxacin) 500 Mg Tablet 500 MG PO BID Enoxaparin (Lovenox) 40 Mg/0.4 Ml Syringe 40 MG SUBQ DAILY Scheduled PRN Ibuprofen (Ibuprofen) 600 Mg Tablet 600 MG PO QID PRN PRN For Pain Oxycodone (Roxicodone) 5 Mg Tablet 10 MG PO Q6H PRN PRN For Pain oxyCODONE-Acetaminophen 10-325 mg (oxyCODONE-Acetaminophen 10-325 mg) 1 Each Tablet 1 TAB PO Q3H PRN PRN For Pain General Time Seen by MD: 21:23 Chief Complaint Fever Hx Obtained From: Patient Arrived By: Walk-in Sudden in Onset?: Yes Onset Occurred: 9 - 12 hours ago Symptom Duration: Since onset Location: : Hip left Recent Healthcare: Recent doctor visit, Recent hospitalization Past Medical History Past Medical History asthma kidney stones anxiety uterine cancer chronic pain Past Surgical History Hysterectomy 2008 x3 tibial plateau fx Family History Noncontributory Smoking History Never Smoker Social History Alcohol Use: Denies alcohol use Drug Use: THC Other Social History: Frequent ED visitor, , Lives with children, Local resident Ambulatory Status Independent Review of Systems Full Review of Systems Constitutional: Reports: Chills, Fever Respiratory: Denies: Non-productive cough, Shortness of breath Cardiovascular: Reports: Chest pain GI: Denies: Abdominal pain Female: Reports: Urinary frequency, Denies: Dysuria Musculoskeletal: Reports: Extremity swelling Skin: Denies Itching, Denies Rash Complete sys rev & neg: except as marked. Physical Exam Vital Signs Vital Signs Date Time Temp Pulse Resp B/P Pulse Ox O2 Delivery O2 Flow Rate FiO2 03/15/17 00:54 37.1 91 18 107/67 98 Room Air 03/15/17 00:10 91 21 107/67 98 Room Air 03/14/17 23:32 93 18 113/74 98 Room Air 03/14/17 22:34 98 18 116/65 99 Room Air 03/14/17 20:44 37.1 111 17 111/77 100 Room Air Initial VS: Reviewed General/Constitutional: Awake, Alert, Not toxic appearing Head / Eyes: Atraumatic, Normocephalic, PERRL, EOMI Respiratory / Chest: Atraumatic, Breath sounds NL, Breath sounds = bilat, No respiratory distress Cardiovascular: Regular rhythm, Heart sounds NL, No gallop, No murmurs, No rubs Abdomen: Atraumatic, Soft, Non-tender, No distention LOWER EXTREMITIES: about the left lateral knee is a well healing surgical incision no redness, purulent drainage or warmth calves are soft bilaterally no palpable cords good dp pulses bilaterally reports left lateral thigh swelling, no palpable swelling, warmth or signs of infection Skin: Atraumatic, Color NL, No rash, Warm, Dry Neurologic: Oriented X3, Speech NL Psychiatric: Affect NL, Mood NL Interpretation & Diagnostics Lab Results Interpretation Result Diagram: 03/14/17222903/14/172229 Test 03/14/17 21:49 03/14/17 22:30 Urine Color Yellow (YELLOW) Urine Appearance Slightly cloudy Urine pH 5.5 (5.0-8.0) Urine Specific [place] <1.005 (1.003-1.035) Urine Protein Negativemg/dL (NEG,TRACE) Urine Glucose (UA) Negativemg/dL (NEGATIVE) Urine Ketones Negativemg/dL (NEGATIVE) Urine Occult Blood Negative (NEGATIVE) Urine Nitrite Negative (NEGATIVE) Urine Bilirubin Negative (NEGATIVE) Urine Urobilinogen Normalmg/dL (NORMAL) Urine Leukocyte Esterase Large (NEGATIVE) Urine RBC 3-10/hpf (0-2) Urine WBC 11-50/hpf (0-5) Urine Epithelial Cells Many/hpf (NONE-MOD) Urine Crystals None seen (NONE SEEN) Urine Bacteria Moderate/hpf (NONE-FEW) Urine Hyaline Casts None/lpf (NONE) Urine Granular Casts None seen (NONE SEEN) Urine Waxy Casts None seen (NONE SEEN) Urine Red Blood Cell Casts None seen (NONE SEEN) Urine White Blood Cell Casts None seen (NONE SEEN) Urine Mucus None seen (None Seen) Urine Trichomonas Present (NONE SEEN) Urine Yeast None (NONE SEEN) Urinalysis Comment None Urine Culture Reflexed Indicated Hold Urine Received (Received) White Blood Count 10.2th/mm3 (3.8-10.1) Red Blood Count 4.33mil/mm3 (3.90-5.20) Hemoglobin 12.3g/dL (12.0-15.6) Hematocrit 37.5% (35.0-46.0) Mean Corpuscular Volume 86.6fL (81-100) Mean Corpuscular Hemoglobin 28.4pg (27.0-35.0) Mean Corpuscular Hemoglobin Concent 32.8% (32.0-37.0) Red Cell Distribution Width 15.5% (12.3-15.4) Platelet Count 573bil/L (150-400) Neutrophils (%) (Auto) 64.9% (40-74) Lymphocytes (%) (Auto) 23.3% (14-46) Monocytes (%) (Auto) 7.1% (4-12) Eosinophils (%) (Auto) 4.1% (0-5) Basophils (%) (Auto) 0.3% (0-3) Sodium Level 137mEq/L (134-144) Potassium Level 4.4mEq/L (3.5-5.2) Chloride Level 101mEq/L (97-108) Carbon Dioxide Level 21mmol/L (18-29) Blood Urea Nitrogen 6mg/dL (6-20) Creatinine 0.48mg/dL (0.57-1.00) Estimat Glomerular Filtration Rate 207mL/min (>59) Glucose Level 108mg/dL (60-99) Lactic Acid Level 0.9mmol/L (0.4-2.0) Calcium Level 8.7mg/dL (8.5-10.1) Total Bilirubin 0.5mg/dL (0.0-1.2) Aspartate Amino Transf (AST/SGOT) 48U/L (0-50) Alanine Aminotransferase (ALT/SGPT) 28U/L (0-32) Alkaline Phosphatase 203U/L (25-150) Total Protein 7.6g/dL (6.4-8.4) Albumin 3.6g/dL (3.4-5.0) X-Ray Chest Interpretation Chest Xray Interpretation: no obvious focal consolidation View: Portable, 1 view Interpretation / Wet Read by: Wet read ED physician US Focused Lower Ext Venous Exam Performed by: Radiologist Exam Type: Diagnostic Exam Interpreted by: Radiologist Indication: Leg swelling left Interpretation: No evid deep vein thromb Re-Eval/Medical Decision Med Decision/Clinical Course Patient is a 36 year old female status post surgery of the tibial plateau on the left side on 03/03/17 who presents to the ED complaining of a subjective fever since earlier today. Associated symptoms include chills, a "lump" on her left hip, left leg swelling, urinary frequency. She denies cough, dysuria, abdominal pain or shortness of breath. Here in the emergency department the patient is afebrile with stable vital signs and examination as above. Differential diagnosis for postoperative fever in this patient includes urinary tract infection, pneumonia, operative site infection and DVT among other causes. Labs: U preg negative CBC: unremarkable besides a mildly elevated leukocytosis of 10.2 CMP: unremarkable besides a mildly elevated alkaline phosphatase at 203 Urinalysis showed large amount of leukocyte esterase, moderate bacteria and 11- 50 WBC Chest X-ray: no obvious focal consolidation (radiology interpretation pending) Leg ultrasound: no signs of DVT Treated with Ceftriaxone and Phenazopyridine for presumed urinary tract infection. Patient remains hemodynamically stable and afebrile. He will be discharged with a 7 day course of ciprofloxacin. No physical exam and evidence of infection in her operative site. I feel the patient is appropriate for outpatient management. She will follow up closely with her surgeon and primary care physician. Prior to discharge follow-up and return precautions were reviewed in detail with the patient who verbalized understanding and agreement with the plan. The patient was discharged in stable condition. Time of Eval: 23:41 Re-Evaluation/Progress Note: Discussed results and plan for discharge. Patient understands and agrees to plan. All questions were addressed. Counseled Regarding: Diagnosis, Lab results, Need for follow-up, When/why to return to ED Discharge & Departure Primary Impression: UTI (urinary tract infection) Urinary tract infection type: site unspecified Hematuria presence: without hematuria Qualified Code: N39.0 - Urinary tract infection, site not specified Additional Impressions: Fever and chills Status post knee surgery Disposition: Home Discharge Condition All VS Reviewed: Yes Condition: Stable Patient Instructions: Urinary Tract Infection in Women (DC) Additional Instructions: Thank you for seeking care at the emergency room. It is difficult for us to make definitive diagnoses in the ED but we believe that you are experiencing a UTI. Take the antibiotic as prescribed Our primary goal today in the Emergency Department was to evaluate you for any life-threatening conditions. Your evaluation was reassuring. You should follow-up with your primary doctor in the next week You should return to the Emergency Department immediately if you develop fevers , vomiting or any other concerning signs or symptoms. Thank you for letting us partake in your care today. Referrals: Mackenzie Sheriff (PCP) Lauren Attestation Portions of this note were transcribed by Salome Martinez. I, Dr. Ponce personally performed the history, physical exam and medical decision-making; I reviewed and confirmed the accuracy of the information in the transcribed note. Signed by: Lauren Villalta, 03/14/17 copies to: Mackenzie Sheriff Beck O MD Mar 14, 2017 21:25 Martine Martinez Mar 14, 2017 21:55
[2017-03-14] MEDS ORDERED: cefTRIAXone Inj 2,000 MG in Dextrose 5% 50 ML IV STA (21:32)
[2017-03-14] MEDS ORDERED: 0.9% Sodium Chloride 1,000 ML IV ONE ×2 (21:32→22:00)
[2017-03-14] MEDS ORDERED: Alum-Mag Hydrox-Simeth 30 mL Suspension PO PRN (21:35)
[2017-03-14] MEDS ORDERED: Ondansetron 2 mg/mL 2 mL Inj IVPUSH PRN (21:35)
[2017-03-14] MEDS ORDERED: Vancomycin Dose per Pharmacist XX ONE (21:35)
[2017-03-14 22:34] VITALS: BP 116/65; PULSE 98; RESP 18; O2SAT 99
[2017-03-14 22:48] LABS: BASOPHILS % (AUTO) 0.3 % (0-3); EOSINOPHILS % (AUTO) 4.1 % (0-5); MONOCYTES % (AUTO) 7.1 % (4-12); Mean Corpuscular Hemoglobin 28.4 pg (27.0-35.0); Mean Corpuscular Volume 86.6 fL (81-100); NEUTROPHILS % (AUTO) 64.9 % (40-74); Platelet Count 573 bil/L (150-400)
[2017-03-14 23:10] LABS: APPEARANCE,URINE SLIGHTLY CLOUDY (CLEAR,HAZY); COLOR,URINE YELLOW (YELLOW); PH,URINE 5.5 (5.0-8.0)
[2017-03-14 23:11] LABS: OCCULT BLOOD,URINE NEGATIVE (NEGATIVE); UROBILINOGEN,URINE NORMAL (NORMAL)
[2017-03-14 23:32] VITALS: BP 113/74; PULSE 93; RESP 18; O2SAT 98
[2017-03-14] MEDS ORDERED: CIPR-198 PO (23:39)
[2017-03-14] MEDS ORDERED: cefTRIAXone Inj 1,000 MG in Dextrose 5% Minibag Plus 50 ML IV ONE (23:40)
[2017-03-14] MEDS ORDERED: Phenazopyridine 97.5 mg Tablet PO ONE (23:45)
[2017-03-15 00:10] VITALS: BP 107/67; PULSE 91; RESP 21; O2SAT 98
[2017-03-15 00:54] VITALS: BP 107/67; PULSE 91; RESP 18; O2SAT 98
--- NOTE | 2017-03-15 07:25 | DRSVH ---
PROCEDURE: X-RAY CHEST, TWO VIEWS ([id number]) INDICATIONS: fever, pna? TECHNIQUE: 2 views of the chest were acquired. COMPARISON: None. FINDINGS: Surgical changes and devices: None. Lungs and pleura: No pleural effusions or pneumothorax. Lungs are clear. Mediastinum: Mediastinal contours are normal. Heart size is normal. Bones and chest wall: No suspicious bony abnormalities. Soft tissues appear unremarkable. IMPRESSION: No acute cardiopulmonary findings. Dictated by: Leslie Alarcon M.D. on 03/15/2017 at 7:23 Approved by: Leslie Alarcon M.D. on 03/15/2017 at 7:24
--- NOTE | 2017-03-15 07:56 | DRSVH ---
PROCEDURE: US VENOUS LEG DUPLEX BILATERAL INDICATIONS: assess for dvt TECHNIQUE: Real-time imaging, as well as color and pulse Doppler interrogation, were performed of the deep veins of both legs from the inguinal ligament to the popliteal fossa. COMPARISON: None. FINDINGS: The deep veins are normally compressible, and free of intraluminal thrombus. Color and pu lse Doppler demonstrate normal phasic intravascular flow. There is normal augmentation response to d istal compression maneuver. IMPRESSION: No deep vein thrombosis of the bilateral lower extremities. Dictated by: Leslie Alarcon M.D. on 03/15/2017 at 7:54 Approved by: Leslie Alarcon M.D. on 03/15/2017 at 7:54
[2017-03-16] MEDS ORDERED: AMOX-366 PO (13:19)
[2017-03-16] MEDS ORDERED: AMOX1TAB11 PO (13:19)
== END 2017-03-15 00:55 | disposition home or self-care (01) ==
LOC: SED 20:35
DX: N39.0 Urinary tract infection, site not specified (principal); B96.20 Unspecified Escherichia coli [E. coli] as the cause of diseases classified elsewhere; F12.10 Cannabis abuse, uncomplicated; J45.909 Unspecified asthma, uncomplicated; R60.0 Localized edema; Z98.890 Other specified postprocedural states; Z87.81 Personal history of (healed) traumatic fracture; Z90.710 Acquired absence of both cervix and uterus; Z79.51 Long term (current) use of inhaled steroids; Z88.8 Allergy status to other drugs, medicaments and biological substances; Z88.2 Allergy status to sulfonamides
CPT/HCPCS: 36415; 71020; 80053; 81000; 81025; 83605; 85025; 87077; 87086; 87088; 87186; 93970; 96361; 96365; 99285; J0696; J7030

== ENCOUNTER 2017-04-06 01:27 | Emergency (ER) | payer MEDICAID, OTHER ==
[~2017-04-06 01:27] MED LIST changes: +AMOX-366 PO; +AMOX1TAB11 PO
[2017-04-06 01:32] VITALS: BP 128/89; PULSE 87; RESP 16; O2SAT 100
--- NOTE | 2017-04-06 01:50 | ED.REPORT ---
HPI-General Illness Date of Service Apr 06, 2017 ED Provider: Yg Man MD The patient is a 36 year old female with a hx of asthma and recent tibia/fibula post fracture surgery presenting to the ED complaining of stitches opening up on a wound on her left leg. She had a tib/fib repair 1 month ago and complains of drainage from the surgical site. The patient denies vomiting, SOB, chills, nausea, or wheezing. Nursing Notes Stated Complaint: POST SURGERY,STITCHES OPENING,LEFT LEG Chief Complaint: Extremity Trauma Nursing Notes Reviewed: Yes Allergies: Coded Allergies: propoxyphene (Verified Allergy, Severe, Breathing problems and tacycardia , 03/08/17) onion (Verified Allergy, Intermediate, Rash and swelling, 03/08/17) Sulfa (Sulfonamide Antibiotics) (Verified Allergy, Unknown, 03/08/17) Uncoded Allergies: ALL NAUSEA MEDS EXCEPT ZOFRAN (Allergy, Intermediate, ITCH, HIVES, 11/02/12) Scheduled Albuterol HFA (Proair HFA) 8.5 Gm Hfa.aer.ad 2 PUFFS INHALATION Q4H Amoxicillin/Clav K 500-125 mg (Augmentin 500) 1 Tab Tab 1 TABLET PO BID Enoxaparin (Lovenox) 40 Mg/0.4 Ml Syringe 40 MG SUBQ DAILY Scheduled PRN Amoxicillin/Clav K 875-125 mg (Augmentin 875-125 mg) 1 Each Tablet 1 TABLET PO BID PRN PRN UTI Ibuprofen (Ibuprofen) 600 Mg Tablet 600 MG PO QID PRN PRN For Pain Oxycodone (Roxicodone) 5 Mg Tablet 10 MG PO Q6H PRN PRN For Pain oxyCODONE-Acetaminophen 10-325 mg (oxyCODONE-Acetaminophen 10-325 mg) 1 Each Tablet 1 TAB PO Q3H PRN PRN For Pain General Time Seen by MD: 01:49 Chief Complaint Other (stitches opening on her left leg) Hx Obtained From: Patient Arrived By: Walk-in Sudden in Onset?: Yes Location: : Leg left Associated with: Denies: Fever, Nausea, Shortness of breath, Vomiting Pertinent Negative: Pt denies other symptoms Recent Healthcare: Recent doctor visit, Recent hospitalization, Previous surgery Similar Sx Previous: No Past Medical History Past Medical History asthma kidney stones anxiety uterine cancer chronic pain Past Surgical History Hysterectomy 2008 x3 Left tibial plateau fx Family History Noncontributory Smoking History Never Smoker Social History Alcohol Use: Denies alcohol use Drug Use: THC Other Social History: Frequent ED visitor, , Lives with children, Local resident Ambulatory Status Independent Review of Systems + stitches opening up on her left leg Full Review of Systems Constitutional: Denies: Chills Respiratory: Denies: Shortness of breath, Wheezing GI: Denies: Nausea, Vomiting Complete sys rev & neg: except as marked. Physical Exam Vital Signs Vital Signs Date Time Temp Pulse Resp B/P Pulse Ox O2 Delivery O2 Flow Rate FiO2 04/06/17 01:32 37.1 87 16 128/89 100 Room Air Initial VS: Reviewed, Vital signs normal General/Constitutional: Well-developed, Well-nourished Head / Eyes: Atraumatic, Normocephalic, PERRL ENT: Mucous membranes moist, Conjunctiva normal, No scleral icterus Neck: Supple, Non-tender, Full range of motion Respiratory: Breath sounds normal, Clear to auscultation, No respiratory distress Cardiovascular: Regular rate & rhythm, Heart sounds normal, Intact distal pulses Abdomen / GI: Soft, Non-tender, No guarding, No rebound, No distention Back: No CVA tenderness Lymphatic: No lymphadenopathy Skin: Warm, Dry, No cyanosis Neurologic: Alert, Oriented, Nonfocal Lower Extremity / Pelvis / MS: Atraumatic mild seroma on the edge of the surgical wound of the left lateral leg no errythema Re-Eval/Medical Decision Med Decision/Clinical Course 36-year-old presents with a small seroma draining from the superior portion of her surgical wound. This does not appear infected and appears basically normal. Culture obtained. Referred back to Dr. Hinson for further evaluation. Time of Eval: 02:00 Patient Status: Condition improved Re-Evaluation/Progress Note: Discussed plan for discharge. Pt understands and agrees with plan. Counseled Regarding: Diagnosis, Lab results, Need for follow-up, When/why to return to ED Discharge & Departure Primary Impression: Seroma Disposition: Home Discharge Condition All VS Reviewed: Yes Condition: Improved Patient Instructions: Seroma (GEN) Additional Instructions: The drainage is coming from a small seroma. This is normal. There is no evidence of infection. We have a culture of the material in the wound. I do not expect any unusual results on the culture. Call Dr. Hinson's office tomorrow. Keep the area covered clean and dry. Referrals: Mackenzie Sheriff (PCP) Terrell Hinson Attestation Portions of this note were transcribed by Iram Angulo and Jose Bucio. I, Dr. Man personally performed the history, physical exam and medical decision -making; I reviewed and confirmed the accuracy of the information in the transcribed note. Signed by: Lauren Romero, 04/05/2017 copies to: Mackenzie Sheriff; Terrell Hinson Christopher W MD Apr 06, 2017 01:50 Apr 06, 2017 01:57 IRAM ANGULO Apr 06, 2017 02:22
== END 2017-04-06 02:26 | disposition home or self-care (01) ==
LOC: SED 01:27
DX: L76.33 Postprocedural seroma of skin and subcutaneous tissue following a dermatologic procedure (principal); Z85.42 Personal history of malignant neoplasm of other parts of uterus; Z90.710 Acquired absence of both cervix and uterus; Z79.01 Long term (current) use of anticoagulants; Z88.2 Allergy status to sulfonamides; Z88.8 Allergy status to other drugs, medicaments and biological substances; Z91.018 Allergy to other foods